=== PATIENT | female | born 1995 | race Caucasian/White ===

== ENCOUNTER 2017-07-25 19:07 | Emergency (ER) | payer SELFPAY ==
[2017-07-25] MEDS ORDERED: PANTOPRAZOLE SODIUM IV 40 MG VIAL IV ONE (19:45)
--- NOTE | 2017-07-25 19:47 | ED.PDOC ---
History of Present Illness - General Chief Complaint: Abdominal Pain Stated Complaint: mid epigastric pain after eating fries Time Seen by Provider: 07/25/17 19:14 Information Source: patient, RN notes reviewed, Vital Signs reviewed Exam Limitations: no limitations - History of Present Illness Initial Comments: Patient presents to ER with c/o upper abdominal pain that started @ 14:00 today after eating fries. The pain is sharp/stabbing and has spread up into her chest. No improvement with OTC Tylenol. No similar episodes in the past. + nausea but no vomiting or diarrhea. Abdominal Pain Onset Location: epigastric Pain Radiation: chest Quality: moderate, sharpness, stabbing Timing/Duration: 4-6 hours Improving Factors: nothing Worsening Factors: movement Associated Symptoms: chest pain, nausea/vomiting Review of Systems - Review of Systems Constitutional: States: no symptoms reported Respiratory: States: no symptoms reported Cardiology: States: see HPI, chest pain Gastrointestinal/Abdominal: States: see HPI, abdominal pain, nausea. Denies: diarrhea, vomiting Genitourinary: States: no symptoms reported Musculoskeletal: States: no symptoms reported Skin: States: no symptoms reported Neurological: States: no symptoms reported All other Systems: No Change from Baseline Past Medical History (General) - Patient Medical History Hx Asthma: No Hx Cardiac Disorders: No Hx Diabetes: No Hx Gastroesophageal Reflux: No Surgical History: other - Vaccination History Hx Tetanus, Diphtheria Vaccination: No Hx Influenza Vaccination: No - Social History Hx Tobacco Use: Yes Hx Alcohol Use: Yes - occ Family Medical History - Family History Father Hx Family Hypertension: Yes Hx Cardiac Disease: Yes Physical Exam - Physical Exam General Appearance: Alert, No apparent distress, Well Developed, Well Groomed, Well Hydrated, Well Nourished Neck: supple, normal inspection Respiratory: lungs clear, normal breath sounds, no respiratory distress, no accessory muscle use Cardiovascular/Chest: regular rate, rhythm, no gallop, no JVD, no murmur Gastrointestinal/Abdominal: normal bowel sounds, soft, no organomegaly, no pulsatile mass, tenderness - Epigastric, RUQ and LUQ w/o guarding or rebound Extremity: normal inspection Neurologic: alert, normal mood/affect, oriented x 3 Skin Exam: normal color Comments: Vital Signs 07/25/17 19:25 Temperature 97.5 F L Pulse Rate [ 77 left] Respiratory 18 Rate Blood Pressure 120/83 [left] O2 Sat by Pulse 95 Oximetry Progress - Progress Progress: 07/25/17 20:59 Pain is improving with Protonix 40mg IV Discussed that labs look good. Suspect her symptoms are from her gallbladder and that she will need to follow up with her PCP and get an outpatient sonogram. She is agreeable with plan. - Results/Orders Results/Orders: Laboratory Tests 07/25/17 07/25/17 20:14 20:14 WBC 7.9 RBC 4.42 Hgb 13.8 Hct 40.7 MCV 92.1 MCH 31.2 H MCHC 33.8 RDW 12.7 Plt Count 243 MPV 9.9 Absolute Neuts (auto) 3.80 Absolute Lymphs (auto) 3.00 Absolute Monos (auto) 0.70 Absolute Eos (auto) 0.20 Absolute Basos (auto) 0.10 Neutrophils % 48.5 Lymphocytes % 38.5 Monocytes % 8.5 Eosinophils % 3.1 Basophils % 1.4 Sodium 138 Potassium 3.6 Chloride 108 Carbon Dioxide 26 Anion Gap 7.6 L BUN 13 Creatinine 0.63 BUN/Creatinine Ratio 20.6 H Random Glucose 110 H Serum Osmolality 276.4 Calcium 9.2 Total Bilirubin 0.8 AST 23 ALT 25 Alkaline Phosphatase 38 L Serum Total Protein 7.1 Albumin 4.5 Globulin 2.6 Albumin/Globulin Ratio 1.7 Amylase 76 Lipase 39 Departure - Departure Clinical Impression: Gallbladder colic Time of Disposition: 21:02 Disposition: Discharge to Home or Self Care Condition: Good Departure Forms: ED Discharge - Pt. Copy, Patient Portal Self Enrollment Instructions: DI for General Gallbladder Conditions Diet: low fat, low cholesterol Activity: increase activity as tolerated Additional Instructions: Follow up with PCP for outpatient gallbladder sonogram.
[2017-07-25 22:35] VITALS: BP 100/70; TEMP 97.8; O2SAT 96
== END 2017-07-25 21:18 | disposition home or self-care (01) ==
LOC: ER 19:07
DX: K80.20 Calculus of gallbladder without cholecystitis without obstruction (principal); Z87.891 Personal history of nicotine dependence

== ENCOUNTER → 2017-07-27 | Emergency (ER) | payer SELFPAY ==
[~2017-07-27] MED LIST: PROMETHAZINE HCL INJ 12.5 MG in SODIUM CHLORIDE 0.9% 50ML 50 ML IVPB ONE; PROMETHAZINE HCL INJ 25 MG/ML VIAL ONE; SODIUM CHLORIDE 0.9% 50ML 50 ML ONE; fentaNYL CITRATE INJ 50 MCG/ML AMP IV ONE
[2017-07-27 13:46] VITALS: BP 119/67; TEMP 98.7; O2SAT 95
--- NOTE | 2017-07-27 22:21 | US ---
EXAM DESCRIPTION: Abdomen,Complete CLINICAL HISTORY: ABDOMINAL PAIN, R/O CHOLECYSTITIS COMPARISON: None. FINDINGS: Sonography was performed of the abdomen. Gallbladder wall thickness is 3 mm. The gallbladder is otherwise normal in appearance with no evidence of gallstones, sludge or pericholecystic fluid. No focal hepatic or pancreatic or splenic lesion is seen. The kidneys appear normal. No stones or hydronephrosis on either side. Common duct is normal in caliber. Right kidney measures 96 x 42 x 60 mm and left kidney 83 x 50 x 45 mm. No sonographic Lugo's sign. Common duct diameter is 2 mm. Liver span is 12.9 cm. Spleen span is 10.8 cm. Aorta measures 19 mm proximal, 17 mm mid and 14 mm distal. IMPRESSION: Mild gallbladder wall thickening. Otherwise normal. Electronically signed by: eD Yun 07/27/2017 10:20 PM [employer]
--- NOTE | 2017-07-27 22:53 | ED.PDOC ---
History of Present Illness - General Chief Complaint: GI Problem Stated Complaint: vomiting and diarrhea x 1 day Time Seen by Provider: 07/27/17 13:52 Source: patient Exam Limitations: no limitations Additional Information: C/O ABDOMINAL PAIN. FEELS LIKE ITS DUE TO GALLBLADDER. - History of Present Illness Timing/Duration: constant - NO RADIATION Severity: moderate Improving Factors: nothing Worsening Factors: other - PO INTAKE Associated Symptoms: nausea/vomiting Allergies/Adverse Reactions: Allergies NO KNOWN ALLERGY Allergy (Verified 07/25/17 19:47) Review of Systems - Review of Systems Constitutional: Denies: chills, fever EENTM: States: no symptoms reported Respiratory: Denies: cough, short of breath, wheezing Cardiology: Denies: chest pain, palpitations Gastrointestinal/Abdominal: States: abdominal pain, nausea. Denies: vomiting Genitourinary: States: no symptoms reported Musculoskeletal: States: no symptoms reported Skin: States: no symptoms reported Neurological: States: no symptoms reported Endocrine: States: no symptoms reported Past Medical History (General) - Patient Medical History Hx Seizures: No Hx Stroke: No Hx Dementia: No Hx Asthma: No Hx of COPD: No Hx Cardiac Disorders: No Hx Congestive Heart Failure: No Hx Pacemaker: No Hx Hypertension: No Hx Thyroid Disease: No Hx Diabetes: No Hx Gastroesophageal Reflux: No Hx Renal Disease: No Hx Cancer: No Hx of HIV: No Hx Hepatitis C: No Hx MRSA: No - Vaccination History Hx Tetanus, Diphtheria Vaccination: No Hx Influenza Vaccination: No Hx Pneumococcal Vaccination: No - Social History Hx Tobacco Use: Yes Hx Alcohol Use: Yes - occ - Triage Comment ED Triage Comment: Patient started having nausea, vomiting and diarrhea that started yesterday but having stomach pain since Thursday. Family Medical History - Family History Father Family History: Unknown Living Status: Unknown Hx Family Hypertension: Yes Hx Cardiac Disease: Yes Physical Exam - Physical Exam General Appearance: Alert, No apparent distress Eye Exam: bilateral normal Ears, Nose, Throat: hearing grossly normal, normal ENT inspection Neck: non-tender, full range of motion, supple Respiratory: lungs clear, normal breath sounds Cardiovascular/Chest: regular rate, rhythm, no murmur Gastrointestinal/Abdominal: soft, no organomegaly, other - EPIGASTRIC AND RUQ TTP, NO MURPHYS Back Exam: normal inspection, no CVA tenderness Extremity: normal range of motion, non-tender, normal inspection Neurologic: no motor/sensory deficits, alert Skin Exam: normal color, warm/dry Lymphatic: no adenopathy Progress - Progress Progress: 07/27/17 23:00 FEELS BETTER AFTER MEDS - EKG/XRAY/CT XRAY: SONO, NO STONES, NL CBD Departure - Departure Clinical Impression: Biliary colic Gastritis Qualifiers: Gastritis type: unspecified gastritis Chronicity: acute Gastritis bleeding: without bleeding Qualified Code(s): K29.00 - Acute gastritis without bleeding Disposition: Discharge to Home or Self Care Departure Forms: ED Discharge - Pt. Copy, Patient Portal Self Enrollment
== END | disposition home or self-care (01) ==
LOC: ER 13:17
DX: K29.00 Acute gastritis without bleeding (principal); Z87.891 Personal history of nicotine dependence
CPT/HCPCS: 76700; 80053; 82150; 83690; 84703; 85025; A4216; J2550; J3010

== ENCOUNTER 2017-09-11 20:56 | Emergency (ER) | payer SELFPAY ==
[2017-09-11 21:20] VITALS: TEMP 98.7
[2017-09-11] MEDS ORDERED: PHENOBARBITAL SODIUM 65 MG/ML IV ONE (21:30)
--- NOTE | 2017-09-11 21:31 | ED.PDOC ---
History of Present Illness - General Chief Complaint: Abdominal Pain Stated Complaint: ABDOMINAL PAIN Time Seen by Provider: 09/11/17 21:08 Information Source: patient Exam Limitations: no limitations - History of Present Illness Initial Comments: SHE HAS BEEN HERE SEVERAL TIMES FOR EPIGASTRIC AND RUQ PAIN. IN LATE JULY SHE HAD A GB SONOGRAM THAT REVEALED NO GALLSTONES AND NO DILATION OF THE CBD. SHE WAS RECOMMENDED A HIDA SCAN BUT HAS NO INSURANCE AND NO PCP. NO SHE PRESENTS WITH ANOTHER BILARY COLIC. Abdominal Pain Onset Location: RUQ, epigastric Pain Radiation: no radiation Quality: severe Timing/Duration: 1-3 hours Improving Factors: nothing Worsening Factors: nothing Associated Symptoms: nausea/vomiting Review of Systems - Review of Systems Constitutional: States: no symptoms reported EENTM: States: no symptoms reported Respiratory: States: no symptoms reported Cardiology: States: no symptoms reported Gastrointestinal/Abdominal: States: abdominal pain, nausea Genitourinary: States: no symptoms reported Musculoskeletal: States: no symptoms reported Skin: States: no symptoms reported Neurological: States: no symptoms reported Endocrine: States: no symptoms reported Hematologic/Lymphatic: States: no symptoms reported Past Medical History (General) - Patient Medical History Hx Seizures: No Hx Stroke: No Hx Dementia: No Hx Asthma: No Hx of COPD: No Hx Cardiac Disorders: No Hx Congestive Heart Failure: No Hx Pacemaker: No Hx Hypertension: No Hx Thyroid Disease: No Hx Diabetes: No Hx Gastroesophageal Reflux: No Hx Renal Disease: No Hx Cancer: No Hx of HIV: No Hx Hepatitis C: No Hx MRSA: No Surgical History: other - Vaccination History Hx Tetanus, Diphtheria Vaccination: Yes Hx Influenza Vaccination: No Hx Pneumococcal Vaccination: No - Social History Hx Tobacco Use: Yes Hx Alcohol Use: Yes - occ Feels Threatened In Home Enviroment: No Feels Threatened In a Relationship: No - Female History Patient is a Female of Child Bearing Age (10 -59 yrs old): Yes Family Medical History - Family History Father Family History: Unknown Living Status: Unknown Hx Family Hypertension: Yes Hx Cardiac Disease: Yes Physical Exam - Physical Exam General Appearance: Alert, Anxious, Ill Appearing, Restless, Well Hydrated, Well Nourished Eyes, Ears, Nose, Throat Exam: PERRL/EOMI, normal ENT inspection, TMs normal Neck: non-tender, full range of motion, supple, normal inspection Respiratory: chest non-tender, lungs clear, normal breath sounds, no respiratory distress, no accessory muscle use Cardiovascular/Chest: normal peripheral pulses, regular rate, rhythm, no edema, no gallop, no JVD, no murmur Gastrointestinal/Abdominal: normal bowel sounds, soft, no organomegaly, no pulsatile mass, tenderness - TO THE EPIGASTRIUM AND RUQ, NEG PEREZ SIGN Rectal Exam: deferred Back Exam: normal inspection Extremity: normal range of motion, non-tender, normal inspection Neurologic: no motor/sensory deficits, alert, normal mood/affect, oriented x 3 Progress - Results/Orders Results/Orders: THE LABORATORY IS REPORTED: WBC'S OF 7.9 WITH A NORMAL DIFFERENTIAL. THE LIVER FUNCTION TEST AND LIPASE ARE ALSO NORMAL. THE PATIENT MUCH IMPROVED AFTER MEDICATION FOR PAIN. Departure - Departure Clinical Impression: Biliary colic Abdominal pain Qualifiers: Abdominal location: right upper quadrant Qualified Code(s): R10.11 - Right upper quadrant pain Disposition: Discharge to Home or Self Care Condition: Good Departure Forms: ED Discharge - Pt. Copy, Patient Portal Self Enrollment Instructions: DI for Abdominal Pain-Adult Diet: other - NON GREASY DIET Activity: increase activity as tolerated Prescriptions: Tramadol HCl 50 mg PO Q4HR #20 tab Home Medications: Ambulatory Orders Tramadol HCl 50 mg PO Q4HR #20 tab 09/11/17
[2017-09-11] MEDS ORDERED: SODIUM CHLORIDE 0.9% 50ML 50 ML ONE (21:42)
[2017-09-11] MEDS ORDERED: PROMETHAZINE HCL INJ 25 MG/ML VIAL ONE (21:42)
[2017-09-11] MEDS: MORPHINE SULFATE INJ 10 MG/ML VIAL IV ONE (21:51)
[2017-09-11] MEDS: PROMETHAZINE HCL INJ 12.5 MG in SODIUM CHLORIDE 0.9% 50ML 50 ML IVPB ONE (21:52)
[2017-09-11 22:59] VITALS: BP 102/74; O2SAT 98
== END 2017-09-11 22:58 | disposition home or self-care (01) ==
LOC: ER 20:56
DX: K80.50 Calculus of bile duct without cholangitis or cholecystitis without obstruction (principal); Z87.891 Personal history of nicotine dependence
CPT/HCPCS: 36415; 80053; 83690; 85025; A4216; J2270; J2550

== ENCOUNTER 2017-09-21 07:58 | Emergency (ER) | payer SELFPAY ==
--- NOTE | 2017-09-21 08:05 | ED.PDOC ---
History of Present Illness - General Chief Complaint: General Stated Complaint: epigastric pain Time Seen by Provider: 09/21/17 08:04 Information Source: patient Exam Limitations: no limitations - History of Present Illness Initial Comments: Elizabeth Buckner 22 y/o female see in ER with sherp epigastric pain the last 2 days,felt nauseated but no actual vomiting .Denies dysuria,hematemesis,hematuria ,constipation. She had same symptoms in 07/22/2017 work up done gb-sono no gallstone.Advised to get Hida scan but stating no health insurance. Abdominal Pain Onset Location: epigastric Quality: intermittent, sharpness, waxing/waning Timing/Duration: 24 hours Improving Factors: nothing Worsening Factors: eating Associated Symptoms: nausea/vomiting Review of Systems - Review of Systems Constitutional: States: no symptoms reported EENTM: States: no symptoms reported Respiratory: States: no symptoms reported Cardiology: States: no symptoms reported Gastrointestinal/Abdominal: States: see HPI Genitourinary: States: no symptoms reported All other Systems: Reviewed and Negative, No Change from Baseline Past Medical History (General) - Patient Medical History Hx Seizures: No Hx Stroke: No Hx Dementia: No Hx Asthma: No Hx of COPD: No Hx Cardiac Disorders: No Hx Congestive Heart Failure: No Hx Pacemaker: No Hx Hypertension: No Hx Thyroid Disease: No Hx Diabetes: No Hx Gastroesophageal Reflux: No Hx Renal Disease: No Hx Cancer: No Hx of HIV: No Hx Hepatitis C: No Hx MRSA: No Surgical History: other - Vaccination History Hx Tetanus, Diphtheria Vaccination: Yes Hx Influenza Vaccination: No Hx Pneumococcal Vaccination: No - Social History Hx Tobacco Use: Yes Hx Alcohol Use: Yes - occ - Female History Patient is a Female of Child Bearing Age (10 -59 yrs old): Yes Hx Last Menstrual Period: 08/25/17 Patient : No Family Medical History - Family History Father Family History: Unknown Living Status: Unknown Hx Family Hypertension: Yes Hx Cardiac Disease: Yes Physical Exam - Physical Exam General Appearance: Alert, Comfortable, No apparent distress Eyes, Ears, Nose, Throat Exam: PERRL/EOMI, normal ENT inspection, pharynx normal Neck: non-tender, full range of motion, supple Respiratory: chest non-tender, lungs clear, normal breath sounds Cardiovascular/Chest: normal peripheral pulses, regular rate, rhythm, no murmur Peripheral Pulses: No deficit Gastrointestinal/Abdominal: normal bowel sounds, non tender, soft, no organomegaly Extremity: no calf tenderness Neurologic: alert, oriented x 3 Skin Exam: normal color, warm/dry Lymphatic: no adenopathy Progress - Progress Progress: 09/21/17 08:54 Last Vital Signs Temp 99.2 F 09/21/17 08:05 Pulse 76 09/21/17 08:05 Resp 20 09/21/17 08:05 BP 111/75 09/21/17 08:05 Pulse Ox 95 09/21/17 08:05 - Results/Orders Results/Orders: Laboratory Tests 09/21/17 09/21/17 09/21/17 08:26 08:28 08:32 WBC RBC Hgb Hct MCV MCH MCHC RDW Plt Count MPV Absolute Neuts (auto) Absolute Lymphs (auto) Absolute Monos (auto) Absolute Eos (auto) Absolute Basos (auto) Neutrophils % Lymphocytes % Monocytes % Eosinophils % Basophils % Sodium Potassium Chloride Carbon Dioxide Anion Gap BUN Creatinine BUN/Creatinine Ratio Random Glucose Serum Osmolality Calcium Total Bilirubin AST ALT Alkaline Phosphatase Serum Total Protein Albumin Globulin Albumin/Globulin Ratio Lipase Urine Color Yellow Urine Appearance Clear Urine pH 7.0 Ur Specific [place] 1.020 Urine Protein Negative Urine Glucose (UA) Negative Urine Ketones Negative Urine Blood Negative Urine Nitrite Negative Urine Bilirubin Negative Urine Urobilinogen 1.0 Ur Leukocyte Esterase Negative Urine RBC 0 Urine WBC 0 Ur Epithelial Cells 1-3 Urine Bacteria 0 Urine HCG, Qual Negative Urine Opiates Screen Negative Urine Barbiturates Negative Ur Phencyclidine Scrn Negative U Amphetamin/Meth Scrn Negative U Benzodiazepines Scrn Negative U Cocaine Metab Screen Negative U Cannabinoids Screen Positive H 09/21/17 09/21/17 09/21/17 08:43 08:43 08:43 WBC 9.7 RBC 4.46 Hgb 13.9 Hct 41.1 MCV 92.2 MCH 31.1 H MCHC 33.7 RDW 12.6 Plt Count 265 MPV 9.6 Absolute Neuts (auto) 5.00 Absolute Lymphs (auto) 3.50 H Absolute Monos (auto) 0.90 H Absolute Eos (auto) 0.20 Absolute Basos (auto) 0.10 Neutrophils % 51.3 Lymphocytes % 36.4 Monocytes % 9.4 H Eosinophils % 1.8 Basophils % 1.1 Sodium 139 Potassium 3.7 Chloride 107 Carbon Dioxide 24 Anion Gap 11.7 L BUN 11 Creatinine 0.67 BUN/Creatinine Ratio 16.4 Random Glucose 86 Serum Osmolality 276.2 Calcium 9.2 Total Bilirubin 0.8 AST 24 ALT 19 Alkaline Phosphatase 46 Serum Total Protein 7.5 Albumin 4.6 Globulin 2.9 Albumin/Globulin Ratio 1.6 Lipase 38 Urine Color Urine Appearance Urine pH Ur Specific [place] Urine Protein Urine Glucose (UA) Urine Ketones Urine Blood Urine Nitrite Urine Bilirubin Urine Urobilinogen Ur Leukocyte Esterase Urine RBC Urine WBC Ur Epithelial Cells Urine Bacteria Urine HCG, Qual Urine Opiates Screen Urine Barbiturates Ur Phencyclidine Scrn U Amphetamin/Meth Scrn U Benzodiazepines Scrn U Cocaine Metab Screen U Cannabinoids Screen - EKG/XRAY/CT XRAY: chest - no acute abnormalities Departure - Departure Clinical Impression: Abdominal pain Qualifiers: Abdominal location: epigastric Qualified Code(s): R10.13 - Epigastric pain Time of Disposition: 09:23 Disposition: Discharge to Home or Self Care Condition: Good Departure Forms: ED Discharge - Pt. Copy, Patient Portal Self Enrollment Diet: other - avoid greasy,spicy dairy foods until better Home Medications: Ambulatory Orders NK [NK] 09/21/17 Additional Instructions: NEED TO MAKE APPOINTMENT WITH -Surgeon for further evaluation call for your appointment
[2017-09-21] MEDS ORDERED: DICYCLOMINE HCL INJ 20 MG/2 ML AMP IM ONE (08:16)
[2017-09-21 08:21] VITALS: TEMP 99.2
--- NOTE | 2017-09-21 08:44 | RAD ---
EXAM DESCRIPTION: Chest,1 View CLINICAL HISTORY: cough FINDINGS/ IMPRESSION: Normal cardiomediastinal silhouette. No edema, infiltrates or effusions Electronically signed by: Roosevelt Ma MD 09/21/2017 8:[address] [facility]
--- NOTE | 2017-09-21 09:16 | US ---
EXAM DESCRIPTION: Gall Bladder: Ultrasound. CLINICAL HISTORY: 22 years Female, abdominal pain. Patient ate 3 hours before examination. COMPARISON: Ultrasound abdomen 07/27/2017. Chest x-ray on this visit. TECHNIQUE: Standard transabdominal scanning: Two-dimensional and Doppler modes. FINDINGS: The gallbladder appears contracted with wall thickness 3.2 mm. No intraluminal stones or sludge. No fluid. Nontender with transducer pressure. Common bile duct caliber 2.7 mm. Pancreas was visualized and unremarkable. Duct not well seen. Normal echogenicity of the liver. No intrahepatic biliary dilatation. Long axis of the right lobe is 13.1 cm. Capsule smooth where seen. Normal portal flow into the liver. No fluid in Morison's pouch. Long axis right kidney 9.7 cm. Normal cortical thickness. No hydronephrosis. IMPRESSION: Gallbladder contracted but not tender and no stones or sludge. Wall thickness secondary to contraction. Normal ultrasound of the liver pancreas and right kidney. No ascites. Electronically signed by: De Ryder MD 09/21/2017 9:15 AM [employer]
[2017-09-21 09:51] VITALS: BP 121/73; O2SAT 96
== END 2017-09-21 09:47 | disposition home or self-care (01) ==
LOC: ER 07:58
DX: R10.13 Epigastric pain (principal); Z87.891 Personal history of nicotine dependence
CPT/HCPCS: 36415; 71045; 76705; 80053; 80307; 81001; 81025; 83690; 85025; J0500

== ENCOUNTER 2017-11-17 15:32 | Emergency (ER) | payer SELFPAY ==
[2017-11-17 15:53] VITALS: TEMP 98.2
[2017-11-17 17:27] VITALS: BP 109/76; O2SAT 97
--- NOTE | 2017-11-17 17:43 | ED.PDOC ---
History of Present Illness - General Chief Complaint: Abdominal Pain Stated Complaint: abd pain Time Seen by Provider: 11/17/17 15:46 Source: patient Exam Limitations: no limitations - History of Present Illness Initial Comments: The patient is a 22-year-old female presenting to emergency room secondary to pelvic and left low back discomfort for the last 3-4 days. She had a miscarriage approximately 3 weeks ago and just all bleeding one week ago. She is only been with one sexual partner for the last year. She is reporting minimal significant vaginal discharge. no fevers. She has a 5-year-old daughter. No history of pelvic inflammatory disease or ovarian pathology in the past. She miscarried approximately 4 weeks along according to her. Timing/Duration: unsure Severity: moderate Improving Factors: nothing Worsening Factors: nothing Associated Symptoms: denies symptoms Allergies/Adverse Reactions: Allergies NO KNOWN ALLERGY Allergy (Verified 09/21/17 08:21) Home Medications: Ambulatory Orders levoFLOXacin [Levaquin] 500 mg PO DAILY #7 tab 11/17/17 Review of Systems - Review of Systems Constitutional: States: no symptoms reported EENTM: States: no symptoms reported Respiratory: States: no symptoms reported Cardiology: States: no symptoms reported Gastrointestinal/Abdominal: States: abdominal pain Genitourinary: States: pain Musculoskeletal: States: back pain Skin: States: no symptoms reported Neurological: States: no symptoms reported Endocrine: States: no symptoms reported All other Systems: No Change from Baseline Past Medical History (General) - Patient Medical History Hx Seizures: No Hx Stroke: No Hx Dementia: No Hx Asthma: No Hx of COPD: No Hx Cardiac Disorders: No Hx Congestive Heart Failure: No Hx Pacemaker: No Hx Hypertension: No Hx Thyroid Disease: No Hx Diabetes: No Hx Gastroesophageal Reflux: No Hx Renal Disease: No Hx Cancer: No Hx of HIV: No Hx Hepatitis C: No Hx MRSA: No - Vaccination History Hx Tetanus, Diphtheria Vaccination: Yes Hx Influenza Vaccination: No Hx Pneumococcal Vaccination: No - Social History Hx Tobacco Use: Yes Hx Alcohol Use: Yes - occ - Female History Patient is a Female of Child Bearing Age (10 -59 yrs old): Yes Hx Last Menstrual Period: 08/25/17 Patient : No - Triage Comment ED Triage Comment: Patient states she had a miscarriage 4 weeks ago. Started having lower abdominal pain and lower back pain yesterday. Also had some vaginal bleeding on Thursday for the day. Family Medical History - Family History Father Family History: Unknown Living Status: Unknown Hx Family Hypertension: Yes Hx Cardiac Disease: Yes Physical Exam - Physical Exam General Appearance: Alert, Comfortable, No apparent distress Eye Exam: bilateral normal Ears, Nose, Throat: hearing grossly normal, normal ENT inspection, normal pharynx Neck: full range of motion, supple Respiratory: lungs clear, normal breath sounds, no respiratory distress, no accessory muscle use Cardiovascular/Chest: normal peripheral pulses, regular rate, rhythm, no edema Peripheral Pulses: radial,right: 2+, radial,left: 2+, dorsalis pedis,right: 2+, dorsalis pedis,left: 2+ Gastrointestinal/Abdominal: soft, other - ild to moderate left lower quadrant discomfort palpation Rectal Exam: deferred, other - pelvic exam shows moderate thin white vaginal discharge. She does have some cervical motion tenderness. No obvious vaginal or cervical lesions noted. No definite masses palpable on bimanual exam. Pain does localize to the left lower quadrant. Back Exam: normal inspection, no CVA tenderness, no vertebral tenderness Extremity: normal range of motion, non-tender, normal inspection, no pedal edema , no calf tenderness, normal capillary refill Neurologic: flash designer II-XII nml as tested, alert, normal mood/affect, oriented x 3 Skin Exam: normal color Comments: Vital Signs - 24 hr 11/17/17 11/17/17 15:35 17:26 Temperature 98.2 F Pulse Rate [ 85 73 Right] Respiratory 18 16 Rate Blood Pressure 107/82 109/76 [Left Arm] O2 Sat by Pulse 96 97 Oximetry Progress - Progress Progress: 11/17/17 17:45 the patient is a 22-year-old female presenting to the emergency room with a syndrome that is consistent with pelvic inflammatory disease that is likely not due to a sexually transmitted disease. wet prep failed to show any definitive source. gC and chlamydia tests are pending. The patient is going to receive a dose of Rocephin and Levaquin here today. She'll be placed on 7 days of oral Levaquin. She does need to follow up with a primary care doctor of her choice in a couple of weeks for reevaluation. ER warnings were given for any worsening. - Results/Orders Results/Orders: 11/17/17 17:17 GC CHLAMYDIA RNA,TMA Stat this is a send out Laboratory Results - last 24 hr 11/17/17 11/17/17 11/17/17 16:05 16:14 16:14 WBC 8.8 RBC 4.72 Hgb 15.0 Hct 43.9 MCV 93.0 MCH 31.8 H MCHC 34.2 RDW 12.6 Plt Count 257 MPV 9.4 Absolute Neuts (auto) 5.00 Absolute Lymphs (auto) 2.80 Absolute Monos (auto) 0.80 Absolute Eos (auto) 0.20 Absolute Basos (auto) 0.10 Neutrophils % 56.3 Lymphocytes % 31.6 Monocytes % 9.3 H Eosinophils % 2.1 Basophils % 0.7 Sodium 137 Potassium 3.6 Chloride 103 Carbon Dioxide 28 Anion Gap 9.6 L BUN 15 Creatinine 0.77 BUN/Creatinine Ratio 19.5 Random Glucose 61 L Serum Osmolality 272.6 L Calcium 9.8 Total Bilirubin 0.8 AST 24 ALT 26 Alkaline Phosphatase 50 Serum Total Protein 8.0 Albumin 4.6 Globulin 3.4 Albumin/Globulin Ratio 1.4 Amylase 74 Lipase 33 Beta HCG, Quant Urine Color Yellow Urine Appearance Cloudy Urine pH 5.5 Ur Specific [place] 1.025 Urine Protein Negative Urine Glucose (UA) Negative Urine Ketones Negative Urine Blood Negative Urine Nitrite Negative Urine Bilirubin Negative Urine Urobilinogen 0.2 Ur Leukocyte Esterase Trace H Urine RBC 0-1 Urine WBC 1-3 Ur Epithelial Cells 5-10 Amorphous Sediment 1+ Urine Bacteria 1+ Patient ABO/Rh 11/17/17 11/17/17 16:14 16:14 WBC RBC Hgb Hct MCV MCH MCHC RDW Plt Count MPV Absolute Neuts (auto) Absolute Lymphs (auto) Absolute Monos (auto) Absolute Eos (auto) Absolute Basos (auto) Neutrophils % Lymphocytes % Monocytes % Eosinophils % Basophils % Sodium Potassium Chloride Carbon Dioxide Anion Gap BUN Creatinine BUN/Creatinine Ratio Random Glucose Serum Osmolality Calcium Total Bilirubin AST ALT Alkaline Phosphatase Serum Total Protein Albumin Globulin Albumin/Globulin Ratio Amylase Lipase Beta HCG, Quant < 0.6 Urine Color Urine Appearance Urine pH Ur Specific [place] Urine Protein Urine Glucose (UA) Urine Ketones Urine Blood Urine Nitrite Urine Bilirubin Urine Urobilinogen Ur Leukocyte Esterase Urine RBC Urine WBC Ur Epithelial Cells Amorphous Sediment Urine Bacteria Patient ABO/Rh O POSITIVE Departure - Departure Clinical Impression: Pelvic inflammatory disease Disposition: Discharge to Home or Self Care Condition: Fair Departure Forms: ED Discharge - Pt. Copy, Patient Portal Self Enrollment Instructions: DI for Pelvic Inflammatory Disease Diet: regular diet Activity: increase activity as tolerated Prescriptions: levoFLOXacin [Levaquin] 500 mg PO DAILY #7 tab Home Medications: Ambulatory Orders levoFLOXacin [Levaquin] 500 mg PO DAILY #7 tab 11/17/17 Additional Instructions: the patient is a 22-year-old female presenting to the emergency room with a syndrome that is consistent with pelvic inflammatory disease that is likely not due to a sexually transmitted disease. wet prep failed to show any definitive source. gC and chlamydia tests are pending. The patient is going to receive a dose of Rocephin and Levaquin here today. She'll be placed on 7 days of oral Levaquin. She does need to follow up with a primary care doctor of her choice in a couple of weeks for reevaluation. ER warnings were given for any worsening.
[2017-11-17] MEDS ORDERED: levoFLOXacin 500 MG TAB PO ONE (17:50)
[2017-11-17] MEDS ORDERED: cefTRIAXone SODIUM 1 GM VIAL IM ONE (17:50)
== END 2017-11-17 18:30 | disposition home or self-care (01) ==
LOC: ER 15:32
DX: N73.9 Female pelvic inflammatory disease, unspecified (principal); Z87.891 Personal history of nicotine dependence

== ENCOUNTER 2017-12-01 00:31 | Emergency (ER) | payer SELFPAY ==
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
--- NOTE | 2017-12-01 01:43 | RAD ---
EXAM DESCRIPTION: Chest,1 View CLINICAL HISTORY: panic attack, chest pain, cough COMPARISON: September 21, 2017 FINDINGS: Cardiac silhouette is within normal limits. There is no focal parenchymal or pleural disease. There is no acute osseous process visualized. IMPRESSION: No evidence of acute cardiopulmonary disease. Electronically signed by: Damien Mar MD 12/01/2017 1:42 AM CDT
[2017-12-01 02:04] VITALS: BP 100/58; TEMP 97.2; O2SAT 95
== END 2017-12-01 02:03 | disposition home or self-care (01) ==
LOC: ER 00:31
DX: F41.0 Panic disorder [episodic paroxysmal anxiety] (principal); R07.9 Chest pain, unspecified; Z87.891 Personal history of nicotine dependence
CPT/HCPCS: 71045; 93005; J2060

== ENCOUNTER 2018-02-22 12:39 | Emergency (ER) | payer SELFPAY ==
[2018-02-22 14:07] VITALS: BP 113/71; TEMP 98.3; O2SAT 97
--- NOTE | 2018-02-22 15:47 | ED.PDOC ---
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 PT REPORTS SHE IS 5 DAYS LATE ON HER PERIOD BUT HAS NOT TAKEN A TEST BECAUSE SHE HAS BEEN BUSY MOVING. Quality: moderate, cramping Radiation: suprapubic Activites at Onset: none Prior abdominal problems: none Improving Factors: nothing Worsening Factors: nothing Associated Symptoms: abdominal pain, nausea/vomiting Allergies/Adverse Reactions: Allergies NO KNOWN ALLERGY Allergy (Verified 09/21/17 08:21) Home Medications: Ambulatory Orders levoFLOXacin [Levaquin] 500 mg PO DAILY #7 tab 11/17/17 Phenazopyridine HCl [Pyridium] 200 mg PO BID 3 Days #6 tab 02/22/18 Sulfamethoxazole-Trimethoprim [Bactrim Ds 800-160 mg] 1 tab PO BID 3 Days #6 tab 02/22/18 Review of Systems - Review of Systems Constitutional: Denies: chills, fever EENTM: Denies: nose congestion, throat pain Respiratory: Denies: cough, short of breath Cardiology: Denies: chest pain, palpitations Gastrointestinal/Abdominal: States: nausea, vomiting. Denies: constipation, diarrhea Genitourinary: States: discharge. Denies: dysuria, frequency Musculoskeletal: Denies: joint pain, joint swelling Skin: Denies: dryness, lesions Neurological: Denies: headache, numbness Past Medical History (General) - Patient Medical History Hx Seizures: No Hx Stroke: No Hx Dementia: No Hx Asthma: No Hx of COPD: No Hx Cardiac Disorders: No Hx Congestive Heart Failure: No Hx Pacemaker: No Hx Hypertension: No Hx Thyroid Disease: No Hx Diabetes: No Hx Gastroesophageal Reflux: No Hx Renal Disease: No Hx Cancer: No Hx of HIV: No Hx Hepatitis C: No Hx MRSA: No - Vaccination History Hx Tetanus, Diphtheria Vaccination: Yes Hx Influenza Vaccination: No Hx Pneumococcal Vaccination: No - Social History Hx Tobacco Use: Yes Hx Alcohol Use: Yes - occ - Female History Patient is a Female of Child Bearing Age (10 -59 yrs old): Yes Hx Last Menstrual Period: 08/25/17 Patient : - unknown - Triage Comment ED Triage Comment: Patient states she has been having vaginal bleeding and pain for a week. States she has had a miscarriage back in November 15 and states the symptoms are the same as before however, she has not had a test or seen a assisted living associate Family Medical History - Family History Father Family History: Unknown Living Status: Unknown Hx Family Hypertension: Yes Hx Cardiac Disease: Yes Physical Exam - Physical Exam General Appearance: Alert, No apparent distress, Well Groomed, Well Hydrated, Well Nourished Eyes, Ears, Nose, Throat Exam: normal ENT inspection Neck: non-tender, full range of motion, supple Cardiovascular/Respiratory: no M/R/G, normal breath sounds, no respiratory distress Gastrointestinal/Abdominal: soft, tenderness - SUPRAPUBIC REGION Extremity: non-tender, normal inspection Neurologic: alert, normal mood/affect, oriented x 3 Skin Exam: normal color, warm/dry Progress - Progress Progress: 02/22/18 16:06 PT RESTING COMFORTABLY, LABS DISCUSSED. RECOMMEND REPEATING HOME TEST IN 5 DAYS IF THERE IS STILL A CONCERN. - Results/Orders Results/Orders: Laboratory Tests 02/22/18 02/22/18 14:25 15:25 Urine Color Yellow Urine Appearance Sl cloudy Urine pH 6.0 Ur Specific [place] >= 1.030 Urine Protein Negative Urine Glucose (UA) Negative Urine Ketones Negative Urine Blood Negative Urine Nitrite Negative Urine Bilirubin Negative Urine Urobilinogen 0.2 Ur Leukocyte Esterase Small H Urine RBC 0-1 Urine WBC 3-5 H Ur Epithelial Cells 3-5 Amorphous Sediment 1+ Urine Bacteria 0 Urine HCG, Qual Negative Departure - Departure Clinical Impression: UTI (urinary tract infection), Negative test, Abdominal cramping Time of Disposition: 16:08 Disposition: Discharge to Home or Self Care Condition: Good Departure Forms: ED Discharge - Pt. Copy, Patient Portal Self Enrollment Instructions: Urinary Tract Infections in Adults, Acute Pelvic Pain (DC) Diet: resume usual diet Referrals: [facility] [Provider Group] - 1-2 Weeks Prescriptions: Phenazopyridine HCl [Pyridium] 200 mg PO BID 3 Days #6 tab Sulfamethoxazole-Trimethoprim [Bactrim Ds 800-160 mg] 1 tab PO BID 3 Days #6 tab Home Medications: Ambulatory Orders levoFLOXacin [Levaquin] 500 mg PO DAILY #7 tab 11/17/17 Phenazopyridine HCl [Pyridium] 200 mg PO BID 3 Days #6 tab 02/22/18 Sulfamethoxazole-Trimethoprim [Bactrim Ds 800-160 mg] 1 tab PO BID 3 Days #6 tab 02/22/18
[2018-02-22] MEDS ORDERED: SULFA/TRIMETH 800/160 (DS) TAB 1 EA TAB PO ONE (16:06)
[2018-02-22] MEDS ORDERED: PHENAZOPYRIDINE HCL 200 MG TAB PO ONE (16:06)
== END 2018-02-22 16:27 | disposition home or self-care (01) ==
LOC: ER 12:39
DX: N39.0 Urinary tract infection, site not specified (principal); R10.2 Pelvic and perineal pain; N89.8 Other specified noninflammatory disorders of vagina; Z32.02 Encounter for pregnancy test, result negative; Z87.891 Personal history of nicotine dependence

== ENCOUNTER 2018-03-15 10:27 | Emergency (ER) | payer SELFPAY ==
[2018-03-15] MEDS ORDERED: SODIUM CHLORIDE 0.9% (FLUSH) 10 ML SYG IV PRN (10:47)
[2018-03-15] MEDS ORDERED: cefTRIAXone SODIUM 1 GM in SODIUM CHL 0.9% 50ML MIN-BAG+ 50 ML IVPB ONE (10:56)
[2018-03-15] MEDS ORDERED: SODIUM CHLORIDE 0.9% 1000ML 1,000 ML IVS ONE (10:56)
[2018-03-15] MEDS ORDERED: KETOROLAC TROMETHAMINE INJ 30 MG/ML VIAL IV ONE (10:57)
[2018-03-15] MEDS ORDERED: ONDANSETRON INJ 4 MG/2 ML VIAL IV ONE (10:57)
--- NOTE | 2018-03-15 11:00 | ED.PDOC ---
History of Present Illness - General Chief Complaint: Problem Stated Complaint: flank pain Time Seen by Provider: 03/15/18 10:43 Source: patient Exam Limitations: no limitations - History of Present Illness Initial Comments: PT REPORTS 3 DAY HISTORY OF RIGHT FLANK PAIN, NAUSEA, AND SUBJECTIVE FEVER. PT STATES SHE WAS DIAGNOSED WITH A UTI 3 WKS AGO BUT DID NOT FILL HER RX. PT DENIES VOMITING OR ABD PAIN. Severity: moderate Associated Symptoms: fever/chills, loss of appetite, nausea/vomiting Allergies/Adverse Reactions: Allergies NO KNOWN ALLERGY Allergy (Verified 09/21/17 08:21) Home Medications: Ambulatory Orders levoFLOXacin [Levaquin] 500 mg PO DAILY #7 tab 11/17/17 Phenazopyridine HCl [Pyridium] 200 mg PO BID 3 Days #6 tab 02/22/18 Sulfamethoxazole-Trimethoprim [Bactrim Ds 800-160 mg] 1 tab PO BID 3 Days #6 tab 02/22/18 Ibuprofen 800 mg PO Q8HR PRN #30 tab 03/15/18 Promethazine Tab [Phenergan Tablet] 25 mg PO Q6H PRN #15 tab 03/15/18 Sulfamethoxazole-Trimethoprim [Bactrim Ds 800-160 mg] 2 tab PO BID #14 tab 03/15 Review of Systems - Review of Systems Constitutional: States: chills, fever EENTM: Denies: nose congestion, throat pain Respiratory: Denies: cough, short of breath Cardiology: Denies: chest pain, palpitations Gastrointestinal/Abdominal: States: nausea. Denies: abdominal pain, vomiting Genitourinary: States: see HPI, dysuria, frequency Musculoskeletal: States: see HPI, back pain. Denies: joint pain Skin: Denies: dryness, lesions Neurological: Denies: headache, numbness Past Medical History (General) - Patient Medical History Hx Seizures: No Hx Stroke: No Hx Dementia: No Hx Asthma: No Hx of COPD: No Hx Cardiac Disorders: No Hx Congestive Heart Failure: No Hx Pacemaker: No Hx Hypertension: No Hx Thyroid Disease: No Hx Diabetes: No Hx Gastroesophageal Reflux: No Hx Renal Disease: No Hx Cancer: No Hx of HIV: No Hx Hepatitis C: No Hx MRSA: No Surgical History: other - Vaccination History Hx Tetanus, Diphtheria Vaccination: Yes Hx Influenza Vaccination: No Hx Pneumococcal Vaccination: No - Social History Hx Tobacco Use: Yes Hx Alcohol Use: Yes - occ - Female History Patient is a Female of Child Bearing Age (10 -59 yrs old): Yes Hx Last Menstrual Period: 08/25/17 Patient : - unknown Family Medical History - Family History Father Family History: Unknown Living Status: Unknown Hx Family Hypertension: Yes Hx Cardiac Disease: Yes Physical Exam - Physical Exam General Appearance: Alert, Well Groomed, Well Hydrated, Well Nourished Eye Exam: bilateral normal Ears, Nose, Throat: hearing grossly normal Neck: full range of motion, normal inspection Respiratory: lungs clear, normal breath sounds, no respiratory distress Cardiovascular/Chest: regular rate, rhythm, no edema, no murmur Gastrointestinal/Abdominal: non tender, soft Back Exam: CVA tenderness (R) Extremity: normal inspection, no pedal edema Neurologic: alert, normal mood/affect, oriented x 3 Skin Exam: normal color, warm/dry Progress - Progress Progress: 03/15/18 11:46 PT REPORTS IMPROVEMENT IN SYMPTOMS AFTER TORADOL AND ZOFRAN. LABS DISCUSSED. - Results/Orders Results/Orders: Laboratory Tests 03/15/18 03/15/18 03/15/18 10:35 10:35 10:35 WBC 8.8 RBC 4.60 Hgb 14.9 Hct 43.1 MCV 93.7 MCH 32.3 H MCHC 34.4 RDW 13.1 Plt Count 226 MPV 10.0 Absolute Neuts (auto) 4.30 Absolute Lymphs (auto) 3.20 Absolute Monos (auto) 0.90 H Absolute Eos (auto) 0.30 Absolute Basos (auto) 0.00 Neutrophils % 49.3 Lymphocytes % 36.1 Monocytes % 10.4 H Eosinophils % 3.6 Basophils % 0.6 Sodium 138 Potassium 3.7 Chloride 105 Carbon Dioxide 25 Anion Gap 11.7 L BUN 11 Creatinine 0.71 BUN/Creatinine Ratio 15.5 Random Glucose 98 Serum Osmolality 275.1 Calcium 9.5 Serum HCG, Qual Negative Urine Color Urine Appearance Urine pH Ur Specific [place] Urine Protein Urine Glucose (UA) Urine Ketones Urine Blood Urine Nitrite Urine Bilirubin Urine Urobilinogen Ur Leukocyte Esterase Urine RBC Urine WBC Ur Epithelial Cells Urine Bacteria 03/15/18 10:35 WBC RBC Hgb Hct MCV MCH MCHC RDW Plt Count MPV Absolute Neuts (auto) Absolute Lymphs (auto) Absolute Monos (auto) Absolute Eos (auto) Absolute Basos (auto) Neutrophils % Lymphocytes % Monocytes % Eosinophils % Basophils % Sodium Potassium Chloride Carbon Dioxide Anion Gap BUN Creatinine BUN/Creatinine Ratio Random Glucose Serum Osmolality Calcium Serum HCG, Qual Urine Color Yellow Urine Appearance Sl cloudy Urine pH 5.5 Ur Specific [place] >= 1.030 Urine Protein Negative Urine Glucose (UA) Negative Urine Ketones Negative Urine Blood Negative Urine Nitrite Negative Urine Bilirubin Negative Urine Urobilinogen 0.2 Ur Leukocyte Esterase Negative Urine RBC 0 Urine WBC 20-30 H Ur Epithelial Cells 5-10 Urine Bacteria 3+ H Departure - Departure Clinical Impression: Pyelonephritis Time of Disposition: 11:46 Disposition: Discharge to Home or Self Care Condition: Good Departure Forms: ED Discharge - Pt. Copy, Patient Portal Self Enrollment Instructions: DI for Kidney Infection Diet: bland diet Activity: increase activity as tolerated Referrals: [facility] [Provider Group] - 1-5 Days Prescriptions: Ibuprofen 800 mg PO Q8HR PRN #30 tab PRN Reason: Pain Promethazine Tab [Phenergan Tablet] 25 mg PO Q6H PRN #15 tab PRN Reason: Nausea/Vomiting Sulfamethoxazole-Trimethoprim [Bactrim Ds 800-160 mg] 2 tab PO BID #14 tab Home Medications: Ambulatory Orders levoFLOXacin [Levaquin] 500 mg PO DAILY #7 tab 11/17/17 Phenazopyridine HCl [Pyridium] 200 mg PO BID 3 Days #6 tab 02/22/18 Sulfamethoxazole-Trimethoprim [Bactrim Ds 800-160 mg] 1 tab PO BID 3 Days #6 tab 02/22/18 Ibuprofen 800 mg PO Q8HR PRN #30 tab 03/15/18 Promethazine Tab [Phenergan Tablet] 25 mg PO Q6H PRN #15 tab 03/15/18 Sulfamethoxazole-Trimethoprim [Bactrim Ds 800-160 mg] 2 tab PO BID #14 tab 03/15
[2018-03-15] MEDS ORDERED: cefTRIAXone SODIUM 1 GM VIAL ONE (11:10)
[2018-03-15] MEDS ORDERED: SODIUM CHL 0.9% 50ML MIN-BAG+ 50 ML IVPB ONE (11:10)
[2018-03-15 13:06] VITALS: BP 115/77; TEMP 97.1; O2SAT 100
== END 2018-03-15 13:05 | disposition home or self-care (01) ==
LOC: ER 10:27
DX: N12 Tubulo-interstitial nephritis, not specified as acute or chronic (principal); R11.2 Nausea with vomiting, unspecified; Z87.891 Personal history of nicotine dependence
CPT/HCPCS: 36415; 36416; 80048; 81001; 84703; 85025; 87086; J0696; J1885; J2405; J7030; J7050

== ENCOUNTER 2018-05-27 09:52 | Emergency (ER) | payer SELFPAY ==
[2018-05-27 10:20] VITALS: TEMP 97.4
--- NOTE | 2018-05-27 10:32 | ED.PDOC ---
History of Present Illness - General Chief Complaint: Problem Stated Complaint: right flank pain,burning with urination Time Seen by Provider: 05/27/18 10:08 Source: patient Exam Limitations: no limitations - History of Present Illness Initial Comments: Elizabeth Santoro 23 y/o female stated that had dysuria and fraquency for the last one week and yesterday stating to have flank pains and N/V x 1 this am.Denies fever/chills Timing/Duration: 1 week Severity: moderate Improving Factors: nothing Worsening Factors: nothing Allergies/Adverse Reactions: Allergies NO KNOWN ALLERGY Allergy (Verified 09/21/17 08:21) Home Medications: Ambulatory Orders levoFLOXacin [Levaquin] 500 mg PO DAILY #7 tab 11/17/17 Phenazopyridine HCl [Pyridium] 200 mg PO BID 3 Days #6 tab 02/22/18 Sulfamethoxazole-Trimethoprim [Bactrim Ds 800-160 mg] 1 tab PO BID 3 Days #6 tab 02/22/18 Ibuprofen 800 mg PO Q8HR PRN #30 tab 03/15/18 Promethazine Tab [Phenergan Tablet] 25 mg PO Q6H PRN #15 tab 03/15/18 Sulfamethoxazole-Trimethoprim [Bactrim Ds 800-160 mg] 2 tab PO BID #14 tab 03/15 Baclofen 20 mg PO BID #14 tab 05/27/18 Review of Systems - Review of Systems Constitutional: States: no symptoms reported EENTM: States: no symptoms reported Respiratory: States: no symptoms reported Cardiology: States: no symptoms reported Genitourinary: States: see HPI Musculoskeletal: States: back pain Neurological: States: no symptoms reported Past Medical History (General) - Patient Medical History Hx Seizures: No Hx Stroke: No Hx Dementia: No Hx Asthma: No Hx of COPD: No Hx Cardiac Disorders: No Hx Congestive Heart Failure: No Hx Pacemaker: No Hx Hypertension: No Hx Thyroid Disease: No Hx Diabetes: No Hx Gastroesophageal Reflux: No Hx Renal Disease: No Hx Cancer: No Hx of HIV: No Hx Hepatitis C: No Hx MRSA: No Surgical History: other - benign breast biopsy - Vaccination History Hx Tetanus, Diphtheria Vaccination: Yes Hx Influenza Vaccination: No Hx Pneumococcal Vaccination: No - Social History Hx Tobacco Use: Yes Hx Alcohol Use: Yes - occ - Female History Patient is a Female of Child Bearing Age (10 -59 yrs old): Yes Hx Last Menstrual Period: 05/10/18 Patient : No - unknown Family Medical History - Family History Father Family History: Unknown Living Status: Unknown Hx Family Hypertension: Yes Hx Cardiac Disease: Yes Physical Exam - Physical Exam General Appearance: Alert, Comfortable, No apparent distress Eye Exam: bilateral normal Ears, Nose, Throat: hearing grossly normal, normal ENT inspection, normal pharynx Neck: non-tender, full range of motion, supple, normal inspection Respiratory: chest non-tender, lungs clear, normal breath sounds, no respiratory distress Cardiovascular/Chest: normal peripheral pulses, regular rate, rhythm, no murmur Peripheral Pulses: radial,right: 2+, radial,left: 2+ Gastrointestinal/Abdominal: normal bowel sounds, non tender, soft, no organomegaly Back Exam: no CVA tenderness, no vertebral tenderness Extremity: normal range of motion, non-tender, no pedal edema, no calf tenderness Neurologic: no motor/sensory deficits, alert, oriented x 3 Skin Exam: normal color, warm/dry Lymphatic: no adenopathy Progress - Progress Progress: 05/27/18 10:34 Vital Signs - 8 hr 05/27/18 10:16 Temperature 97.4 F L Pulse Rate [ 83 Right Brachial] Respiratory 20 Rate Blood Pressure 100/62 [Right Arm] O2 Sat by Pulse 98 Oximetry - Results/Orders Results/Orders: Laboratory Results - last 24 hr 05/27/18 05/27/18 05/27/18 10:20 10:38 10:38 WBC 8.6 RBC 4.73 Hgb 15.0 Hct 45.4 MCV 96.1 MCH 31.7 H MCHC 33.0 RDW 12.6 Plt Count 215 MPV 9.6 Absolute Neuts (auto) 5.20 Absolute Lymphs (auto) 2.40 Absolute Monos (auto) 0.80 Absolute Eos (auto) 0.20 Absolute Basos (auto) 0.00 Neutrophils % 60.4 Lymphocytes % 27.7 Monocytes % 9.2 H Eosinophils % 2.2 Basophils % 0.5 Sodium 140 Potassium 4.0 Chloride 106 Carbon Dioxide 26 Anion Gap 12.0 BUN 17 Creatinine 0.70 BUN/Creatinine Ratio 24.3 H Random Glucose 111 H Serum Osmolality 281.6 Calcium 9.5 Total Bilirubin 0.7 AST 40 ALT 40 Alkaline Phosphatase 44 Serum Total Protein 7.6 Albumin 4.7 Globulin 2.9 Albumin/Globulin Ratio 1.6 Lipase 34 Urine Color Yellow Urine Appearance Clear Urine pH 6.0 Ur Specific [place] 1.025 Urine Protein Negative Urine Glucose (UA) Negative Urine Ketones Negative Urine Blood Negative Urine Nitrite Negative Urine Bilirubin Negative Urine Urobilinogen 0.2 Ur Leukocyte Esterase Negative Urine RBC 0 Urine WBC 1-3 Ur Epithelial Cells 3-5 Urine Bacteria 0 Urine HCG, Qual 05/27/18 10:38 WBC RBC Hgb Hct MCV MCH MCHC RDW Plt Count MPV Absolute Neuts (auto) Absolute Lymphs (auto) Absolute Monos (auto) Absolute Eos (auto) Absolute Basos (auto) Neutrophils % Lymphocytes % Monocytes % Eosinophils % Basophils % Sodium Potassium Chloride Carbon Dioxide Anion Gap BUN Creatinine BUN/Creatinine Ratio Random Glucose Serum Osmolality Calcium Total Bilirubin AST ALT Alkaline Phosphatase Serum Total Protein Albumin Globulin Albumin/Globulin Ratio Lipase Urine Color Urine Appearance Urine pH Ur Specific [place] Urine Protein Urine Glucose (UA) Urine Ketones Urine Blood Urine Nitrite Urine Bilirubin Urine Urobilinogen Ur Leukocyte Esterase Urine RBC Urine WBC Ur Epithelial Cells Urine Bacteria Urine HCG, Qual Negative Discuss result of lab test to patient explained all her test came back WNL no UTI as she mentioned most likely muscle spasms. Departure - Departure Clinical Impression: Frequency of urination Back pain Qualifiers: Back pain location: low back pain Chronicity: unspecified Back pain laterality : bilateral Sciatica presence: without sciatica Qualified Code(s): M54.5 - Low back pain Time of Disposition: 11:49 Disposition: Discharge to Home or Self Care Condition: Fair Departure Forms: ED Discharge - Pt. Copy, Patient Portal Self Enrollment Instructions: Muscle Spasms (DC) Referrals: Kandy Healy NP [Primary Care Provider] - 1-2 Weeks Prescriptions: Baclofen 20 mg PO BID #14 tab Home Medications: Ambulatory Orders levoFLOXacin [Levaquin] 500 mg PO DAILY #7 tab 11/17/17 Phenazopyridine HCl [Pyridium] 200 mg PO BID 3 Days #6 tab 02/22/18 Sulfamethoxazole-Trimethoprim [Bactrim Ds 800-160 mg] 1 tab PO BID 3 Days #6 tab 02/22/18 Ibuprofen 800 mg PO Q8HR PRN #30 tab 03/15/18 Promethazine Tab [Phenergan Tablet] 25 mg PO Q6H PRN #15 tab 03/15/18 Sulfamethoxazole-Trimethoprim [Bactrim Ds 800-160 mg] 2 tab PO BID #14 tab 03/15 Baclofen 20 mg PO BID #14 tab 05/27/18 Additional Instructions: May take ALEVE(over the counter) 1-2 tablets am/pm for pain as needed;follow up with primary MD May 2018
[2018-05-27 11:02] VITALS: O2SAT 99
[2018-05-27 11:59] VITALS: BP 117/70
== END 2018-05-27 11:58 | disposition home or self-care (01) ==
LOC: ER 09:52
DX: R35.0 Frequency of micturition (principal); M54.5 Low back pain; R30.0 Dysuria; R11.2 Nausea with vomiting, unspecified; Z87.891 Personal history of nicotine dependence

== ENCOUNTER 2018-07-23 15:04 | Emergency (ER) | payer SELFPAY ==
[2018-07-23 15:17] VITALS: TEMP 99.3
--- NOTE | 2018-07-23 15:18 | ED.PDOC ---
History of Present Illness - General Chief Complaint: GI Problem Stated Complaint: N/V/D Time Seen by Provider: 07/23/18 15:18 Information Source: patient Exam Limitations: no limitations - History of Present Illness Initial Comments: Elizabeth Buckner 23 y/o female came to ER with intermittent nausea/vomiting and diarrhea for the last 3 days stated that she ate [place] lettuce and heard in the news about possible contamination.I told her there are just [place] the [place] that got [place] from [place].Also she had intermittent abdominal cramps.No N/V while in ER. Abdominal Pain Onset Location: generalized abdomen Pain Radiation: no radiation Quality: moderate, cramping Timing/Duration: days - 3 Improving Factors: nothing Worsening Factors: eating Associated Symptoms: other - see hpi Review of Systems - Review of Systems Gastrointestinal/Abdominal: States: see HPI All other Systems: Reviewed and Negative, No Change from Baseline Past Medical History (General) - Patient Medical History Hx Seizures: No Hx Stroke: No Hx Dementia: No Hx Asthma: No Hx of COPD: No Hx Cardiac Disorders: No Hx Congestive Heart Failure: No Hx Pacemaker: No Hx Hypertension: No Hx Thyroid Disease: No Hx Diabetes: No Hx Gastroesophageal Reflux: No Hx Renal Disease: No Hx Cancer: No Hx of HIV: No Hx Hepatitis C: No Hx MRSA: No Surgical History: other - Vaccination History Hx Tetanus, Diphtheria Vaccination: Yes Hx Influenza Vaccination: No Hx Pneumococcal Vaccination: No - Social History Hx Tobacco Use: Yes Hx Alcohol Use: Yes - occ Hx Physical Abuse: No Hx Emotional Abuse: No - Female History Hx Last Menstrual Period: 05/10/18 Patient : No - unknown Family Medical History - Family History Father Family History: Unknown Living Status: Unknown Hx Family Hypertension: Yes Hx Cardiac Disease: Yes - dad Hx Family Cancer: Yes - breast-grandma Physical Exam - Physical Exam General Appearance: Alert, Comfortable, No apparent distress Eyes, Ears, Nose, Throat Exam: PERRL/EOMI, normal ENT inspection, pharynx normal Neck: non-tender, full range of motion, supple Respiratory: chest non-tender, lungs clear, normal breath sounds Cardiovascular/Chest: normal peripheral pulses, regular rate, rhythm, no murmur Peripheral Pulses: No deficit Gastrointestinal/Abdominal: non tender, soft, no organomegaly Back Exam: no CVA tenderness, no vertebral tenderness Neurologic: no motor/sensory deficits, alert, oriented x 3 Skin Exam: normal color, warm/dry Lymphatic: no adenopathy Progress - Progress Progress: 07/23/18 16:04 Vital Signs - 8 hr 07/23/18 15:10 Temperature 99.3 F Pulse Rate [ 70 left brachial] Respiratory 20 Rate Blood Pressure 114/75 [left brachial] O2 Sat by Pulse 98 Oximetry - Results/Orders Results/Orders: 07/23/18 15:19 IV Care:Saline Lock per Protoc QSHIFT 07/23/18 15:39 URINE CULTURE W/COLONY COUNT Stat 07/23/18 16:54 [id number] SODIUM [Rocephin] 1 gm Sodium Chl 0.9% 50Ml Min-Bag+ [NS 50ml MINI -BAG+] 50 ml IVPB ONCE Laboratory Results - last 24 hr 07/23/18 07/23/18 07/23/18 15:36 15:36 15:36 WBC 9.9 RBC 4.61 Hgb 14.4 Hct 43.3 MCV 94.0 MCH 31.2 H MCHC 33.2 RDW 12.7 Plt Count 243 MPV 9.8 Absolute Neuts (auto) 5.90 Absolute Lymphs (auto) 2.90 Absolute Monos (auto) 0.80 Absolute Eos (auto) 0.30 Absolute Basos (auto) 0.10 Neutrophils % 59.4 Lymphocytes % 29.4 Monocytes % 7.9 Eosinophils % 2.6 Basophils % 0.7 Sodium 139 Potassium 3.5 L Chloride 101 Carbon Dioxide 28 Anion Gap 13.5 BUN 13 Creatinine 0.63 BUN/Creatinine Ratio 20.6 H Random Glucose 113 H Serum Osmolality 278.5 Calcium 10.1 Total Bilirubin 0.4 AST 28 ALT 28 Alkaline Phosphatase 47 Serum Total Protein 7.6 Albumin 4.5 Globulin 3.1 Albumin/Globulin Ratio 1.5 Lipase 23 Serum HCG, Qual Negative Urine Color Urine Appearance Urine pH Ur Specific [place] Urine Protein Urine Glucose (UA) Urine Ketones Urine Blood Urine Nitrite Urine Bilirubin Urine Urobilinogen Ur Leukocyte Esterase Urine RBC Urine WBC Ur Epithelial Cells Urine Bacteria 07/23/18 15:39 WBC RBC Hgb Hct MCV MCH MCHC RDW Plt Count MPV Absolute Neuts (auto) Absolute Lymphs (auto) Absolute Monos (auto) Absolute Eos (auto) Absolute Basos (auto) Neutrophils % Lymphocytes % Monocytes % Eosinophils % Basophils % Sodium Potassium Chloride Carbon Dioxide Anion Gap BUN Creatinine BUN/Creatinine Ratio Random Glucose Serum Osmolality Calcium Total Bilirubin AST ALT Alkaline Phosphatase Serum Total Protein Albumin Globulin Albumin/Globulin Ratio Lipase Serum HCG, Qual Urine Color Yellow Urine Appearance Cloudy Urine pH 7.5 Ur Specific [place] 1.020 Urine Protein Negative Urine Glucose (UA) Negative Urine Ketones Negative Urine Blood Negative Urine Nitrite Negative Urine Bilirubin Negative Urine Urobilinogen 0.2 Ur Leukocyte Esterase Small H Urine RBC 1-3 Urine WBC 10-20 H Ur Epithelial Cells 0 Urine Bacteria 2+ H discuss all test result with patient and advised to read discharge instructions; no further vomiting noted while in er Departure - Departure Clinical Impression: Nausea vomiting and diarrhea Urinary tract infection Qualifiers: Urinary tract infection type: site unspecified Hematuria presence: without hematuria Qualified Code(s): N39.0 - Urinary tract infection, site not specified Time of Disposition: 17:01 Disposition: Discharge to Home or Self Care Condition: Fair Departure Forms: ED Discharge - Pt. Copy, Patient Portal Self Enrollment Instructions: Diarrhea in Adolescents and Adults, [place] Diet, Viral Gastroenteritis, Adult (DC) Diet: other - Avoid GREASY/SPICY foods for 3 days;may also have bananas,rice toast bread,meir vance ,tea Referrals: Kandy Healy, [facility] [Primary Care Provider] - 1-2 Weeks Prescriptions: Nitrofurantoin Monohydrate Mac [Macrobid] 100 mg PO BID #10 capsule Home Medications: Ambulatory Orders Nitrofurantoin Monohydrate Mac [Macrobid] 100 mg PO BID #10 capsule 07/23/18 Additional Instructions: Return to ER as needed;follow up with primary Md 26 Jul 2018 as needed
[2018-07-23] MEDS ORDERED: PROMETHAZINE HCL INJ 25 MG/ML VIAL IM ONE (15:19)
[2018-07-23] MEDS ORDERED: MORPHINE SULFATE INJ 10 MG/ML VIAL IV ONE (15:19)
[2018-07-23] MEDS ORDERED: LACTATED RINGERS 1,000 ML IVS ONE (15:19)
[2018-07-23] MEDS ORDERED: HYOSCYAMINE SULFATE 0.5 MG/ML VIAL IV ONE (16:01)
[2018-07-23] MEDS ORDERED: cefTRIAXone SODIUM 1 GM in SODIUM CHL 0.9% 50ML MIN-BAG+ 50 ML IVPB ONE (16:54)
[2018-07-23] MEDS ORDERED: SODIUM CHL 0.9% 50ML MIN-BAG+ 50 ML IVPB ONE (17:02)
[2018-07-23] MEDS ORDERED: cefTRIAXone SODIUM 1 GM VIAL ONE (17:02)
[2018-07-23 18:20] VITALS: BP 98/64; O2SAT 96
== END 2018-07-23 17:45 | disposition home or self-care (01) ==
LOC: ER 15:04
DX: N39.0 Urinary tract infection, site not specified (principal); R11.2 Nausea with vomiting, unspecified; R19.7 Diarrhea, unspecified; Z87.891 Personal history of nicotine dependence
CPT/HCPCS: 36415; 80053; 81001; 83690; 84703; 85025; 87086; J0696; J2270; J2550; J7050; J7120

== ENCOUNTER 2018-10-15 11:48 | Emergency (ER) | payer SELFPAY ==
--- NOTE | 2018-10-15 14:09 | CT ---
EXAM DESCRIPTION: CT ABDOMEN AND PELVIS WITH CONTRAST CLINICAL HISTORY: ABDOMINAL PAIN COMPARISON: Ultrasound gallbladder September 21, 2017, ultrasound abdomen July 27, 2017 TECHNIQUE: CT of the abdomen and pelvis is performed during IV bolus administration of routine adult dose of nonionic iodinated contrast. No oral contrast. FINDINGS: The lung bases are clear of infiltrate. Heart size is normal. CT abdomen Liver is normal in size and parenchymal appearance. No calcified stones in the gallbladder. Spleen, pancreas, and kidneys are unremarkable. No renal stones or hydronephrosis. No inflammation around the pancreas. There is no lymphadenopathy, inflammation, or free fluid observed. CT PELVIS: Normal appearance of the uterus and ovaries. Normal appendix. Pelvic bowel loops appear normal. No free fluid or mass in the pelvis. Minimal fluid in the endometrial canal of the uterus. No stones are seen in the distal ureters or in the bladder. Bones are unremarkable. Coronal and sagittal reformatted images confirm the findings. IMPRESSION: No acute upper abdominal process. No acute pelvic process. This exam was performed according to our departmental dose-optimization program, which includes automated exposure control, adjustment of the mA and/or kV according to patient size and/or use of iterative reconstruction technique. Electronically signed by: Thomas Hernández MD 10/15/2018 2:07 PM [facility]
--- NOTE | 2018-10-15 14:19 | ED.PDOC ---
History of Present Illness - General Chief Complaint: GI Problem Stated Complaint: abdominal pain Time Seen by Provider: 10/15/18 11:56 Source: patient, RN notes reviewed Additional Information: 23 YEAR OLD PRESENTS WITH CHRONIC RECURRENT ABDOMINAL PAIN FOR MONTHS SHE HAS NOT FELT ANY BETTER SHE HAS LOWER ABDOMINAL PAIN AT TIMES WITH ALTERNATING DIARRHEA AND CONSTIPATION SHE HAS SOMETIMES PRESSURE LIKE DISCOMFORT IN THE RECTAL PELVIC AREA WITH NO BOWEL MOVEMENT SHE HAS NO WEIGHT LOSS NO LOSS OF BLOOD IN STOOLS HER PERIODS ARE NORMAL TODAY HER TEST UA LABS ARE ALL NORMAL CT IS NEG NORMAL GB LIVER KIDNEY SPLEEN NORMAL OVARIES NO FREE FLUID - History of Present Illness Timing/Duration: intermittent Severity: moderate Improving Factors: nothing Worsening Factors: nothing Associated Symptoms: weakness Allergies/Adverse Reactions: Allergies NO KNOWN ALLERGY Allergy (Verified 09/21/17 08:21) Home Medications: Ambulatory Orders Nitrofurantoin Monohydrate Mac [Macrobid] 100 mg PO BID #10 capsule 07/23/18 Review of Systems - Review of Systems Constitutional: States: no symptoms reported EENTM: States: no symptoms reported Respiratory: States: no symptoms reported Cardiology: States: no symptoms reported Gastrointestinal/Abdominal: States: see HPI Genitourinary: States: no symptoms reported Musculoskeletal: States: no symptoms reported Skin: States: no symptoms reported Neurological: States: no symptoms reported Endocrine: States: no symptoms reported Hematologic/Lymphatic: States: no symptoms reported Past Medical History (General) - Patient Medical History Hx Seizures: No Hx Stroke: No Hx Dementia: No Hx Asthma: No Hx of COPD: No Hx Cardiac Disorders: No Hx Congestive Heart Failure: No Hx Pacemaker: No Hx Hypertension: No Hx Thyroid Disease: No Hx Diabetes: No Hx Gastroesophageal Reflux: No Hx Renal Disease: No Hx Cancer: No Hx of HIV: No Hx Hepatitis C: No Hx MRSA: No Surgical History: other - Vaccination History Hx Tetanus, Diphtheria Vaccination: Yes - 2016 Hx Influenza Vaccination: No Hx Pneumococcal Vaccination: No - Social History Hx Tobacco Use: Yes Hx Alcohol Use: Yes - occ Hx Physical Abuse: No Hx Emotional Abuse: No - Female History Patient is a Female of Child Bearing Age (10 -59 yrs old): Yes Hx Last Menstrual Period: 05/10/18 Patient : No - unknown Family Medical History - Family History Father Family History: Unknown Living Status: Unknown Hx Family Hypertension: Yes Hx Cardiac Disease: Yes - dad Hx Family Cancer: Yes - breast-grandma Physical Exam - Physical Exam General Appearance: Alert, Comfortable Ears, Nose, Throat: hearing grossly normal, normal ENT inspection, normal pharynx Neck: non-tender, full range of motion, supple Respiratory: chest non-tender, normal breath sounds, no respiratory distress, no accessory muscle use, respiratory distress Cardiovascular/Chest: normal peripheral pulses, regular rate, rhythm, no edema, no gallop, no JVD, no murmur Back Exam: normal inspection Extremity: normal range of motion, non-tender Neurologic: communications maintainer II-XII nml as tested, no motor/sensory deficits, normal mood/affect, oriented x 3 Lymphatic: no adenopathy Departure - Departure Clinical Impression: Irritable bowel syndrome Time of Disposition: 15:03 Disposition: Discharge to Home or Self Care Condition: Good Departure Forms: ED Discharge - Pt. Copy, Patient Portal Self Enrollment Referrals: Kandy Healy NP [Primary Care Provider] - 1-2 Weeks Home Medications: Ambulatory Orders Nitrofurantoin Monohydrate Mac [Macrobid] 100 mg PO BID #10 capsule 07/23/18
[2018-10-15 18:57] VITALS: BP 111/80; TEMP 98.2; O2SAT 95
== END 2018-10-15 15:45 ==
LOC: ER 11:48
DX: K58.9 Irritable bowel syndrome, unspecified (principal); Z87.891 Personal history of nicotine dependence

== ENCOUNTER 2018-11-19 13:18 | Emergency (ER) | payer SELFPAY ==
--- NOTE | 2018-11-19 13:37 | ED.PDOC ---
History of Present Illness - General Chief Complaint: General Stated Complaint: N/V/ab pain Time Seen by Provider: 11/19/18 13:31 Source: patient Exam Limitations: no limitations - History of Present Illness Initial Comments: Patient presents with N/V/D/RUQ pain since yesterday. The pain is constant but intermittent in intensity, worse after eating, 4-5 previous episodes. Her boyfriend has diarrhea. No other similarly sick contacts. Pain is "sometimes cramping, sometimes sharp". No other complaints. No previous abdominal surgeries. Timing/Duration: 24 hours Severity: moderate Improving Factors: rest Worsening Factors: eating Associated Symptoms: other - as in HPI Allergies/Adverse Reactions: Allergies NO KNOWN ALLERGY Allergy (Verified 11/19/18 13:38) Home Medications: Ambulatory Orders Ketorolac Tromethamine [Toradol Tabs] 10 mg PO Q6HRS #12 tab 11/19/18 Ondansetron HCl [Zofran] 4 mg PO Q4HR #20 tab 11/19/18 Review of Systems - Review of Systems Constitutional: States: no symptoms reported EENTM: States: no symptoms reported Respiratory: States: no symptoms reported Cardiology: States: no symptoms reported Gastrointestinal/Abdominal: States: see HPI Genitourinary: States: no symptoms reported Musculoskeletal: States: no symptoms reported Skin: States: no symptoms reported Neurological: States: no symptoms reported Endocrine: States: no symptoms reported Hematologic/Lymphatic: States: no symptoms reported Past Medical History (General) - Patient Medical History Hx Seizures: No Hx Stroke: No Hx Dementia: No Hx Asthma: No Hx of COPD: No Hx Cardiac Disorders: No Hx Congestive Heart Failure: No Hx Pacemaker: No Hx Hypertension: No Hx Thyroid Disease: No Hx Diabetes: No Hx Gastroesophageal Reflux: No Hx Renal Disease: No Hx Cancer: No Hx of HIV: No Hx Hepatitis C: No Hx MRSA: No - Vaccination History Hx Tetanus, Diphtheria Vaccination: Yes - 2016 Hx Influenza Vaccination: No Hx Pneumococcal Vaccination: No - Social History Hx Tobacco Use: Yes Hx Alcohol Use: Yes - occ Hx Physical Abuse: No Hx Emotional Abuse: No - Female History Hx Last Menstrual Period: 05/10/18 Patient : No - unknown Family Medical History - Family History Father Family History: Unknown Living Status: Unknown Hx Family Hypertension: Yes Hx Cardiac Disease: Yes - dad Hx Family Cancer: Yes - breast-grandma Physical Exam - Physical Exam General Appearance: Alert Eye Exam: bilateral normal Ears, Nose, Throat: normal ENT inspection Neck: non-tender, full range of motion, supple Respiratory: lungs clear, normal breath sounds Cardiovascular/Chest: normal peripheral pulses, regular rate, rhythm Gastrointestinal/Abdominal: normal bowel sounds, non tender, soft Back Exam: normal inspection, no CVA tenderness Extremity: normal range of motion, non-tender, normal inspection Neurologic: no motor/sensory deficits, alert, normal mood/affect, oriented x 3 Skin Exam: normal color Lymphatic: no adenopathy Progress - Progress Progress: 11/19/18 15:01 Laboratory Tests 11/19/18 11/19/18 11/19/18 13:36 13:36 13:36 WBC 9.7 RBC 4.71 Hgb 15.2 Hct 44.8 MCV 95.1 MCH 32.3 H MCHC 33.9 RDW 12.5 Plt Count 244 MPV 9.5 Absolute Neuts (auto) 5.90 Absolute Lymphs (auto) 2.50 Absolute Monos (auto) 0.90 H Absolute Eos (auto) 0.30 Absolute Basos (auto) 0.10 Neutrophils % 60.9 Lymphocytes % 25.4 Monocytes % 9.3 H Eosinophils % 3.4 Basophils % 1.0 Sodium 137 Potassium 3.9 Chloride 103 Carbon Dioxide 26 Anion Gap 11.9 L BUN 10 Creatinine 0.73 BUN/Creatinine Ratio 13.7 Random Glucose 90 Serum Osmolality 272.4 L Calcium 9.5 Total Bilirubin 0.5 AST 22 ALT 25 Alkaline Phosphatase 52 Serum Total Protein 7.5 Albumin 4.4 Globulin 3.1 Albumin/Globulin Ratio 1.4 Lipase 39 Urine Color Urine Appearance Urine pH Ur Specific [place] Urine Protein Urine Glucose (UA) Urine Ketones Urine Blood Urine Nitrite Urine Bilirubin Urine Urobilinogen Ur Leukocyte Esterase Urine RBC Urine WBC Ur Epithelial Cells Amorphous Sediment Urine Bacteria Urine HCG, Qual Negative 11/19/18 14:16 WBC RBC Hgb Hct MCV MCH MCHC RDW Plt Count MPV Absolute Neuts (auto) Absolute Lymphs (auto) Absolute Monos (auto) Absolute Eos (auto) Absolute Basos (auto) Neutrophils % Lymphocytes % Monocytes % Eosinophils % Basophils % Sodium Potassium Chloride Carbon Dioxide Anion Gap BUN Creatinine BUN/Creatinine Ratio Random Glucose Serum Osmolality Calcium Total Bilirubin AST ALT Alkaline Phosphatase Serum Total Protein Albumin Globulin Albumin/Globulin Ratio Lipase Urine Color Yellow Urine Appearance Cloudy Urine pH 8.5 H Ur Specific [place] 1.020 Urine Protein Trace Urine Glucose (UA) Negative Urine Ketones Negative Urine Blood Negative Urine Nitrite Negative Urine Bilirubin Negative Urine Urobilinogen 0.2 Ur Leukocyte Esterase Negative Urine RBC 0 Urine WBC 0 Ur Epithelial Cells 5-10 Amorphous Sediment Trace Urine Bacteria Rare Urine HCG, Qual Patient's pain improved with toradol 30 mg IV x one. She did not have any N/V/D while in the E.D. It is possible that she has gastroenteritis, biliary colic, appendiciti, or colitis. However, her wbc was normal and she was afebrile. She has had several episodes similar to this and has received enough CT scans at this point. Clinically, this did not appear to be appendicitis. Patient was instructed to follow up with her pcp or Dr. Martinez for further evaluation of the gall bladder. Care instructions given. E.R. warnings given. Questions were elicited and answered. Patient voiced understanding and agreement with the plan. Departure - Departure Clinical Impression: Nausea & vomiting, Diarrhea Disposition: Discharge to Home or Self Care Condition: Good Departure Forms: ED Discharge - Pt. Copy, Patient Portal Self Enrollment Diet: low fat, low cholesterol Activity: increase activity as tolerated Referrals: Kandy Healy, [employer] OPERATOR [Primary Care Provider] - 1-2 Weeks Prescriptions: Ondansetron HCl [Zofran] 4 mg PO Q4HR #20 tab Ketorolac Tromethamine [Toradol Tabs] 10 mg PO Q6HRS #12 tab Home Medications: Ambulatory Orders Ketorolac Tromethamine [Toradol Tabs] 10 mg PO Q6HRS #12 tab 11/19/18 Ondansetron HCl [Zofran] 4 mg PO Q4HR #20 tab 11/19/18 Additional Instructions: Increase oral fluids. Take medications as prescribed. Do not take the ketorolac for more than 4 more days due to risks on the kidneys and if you become . See your regular doctor or Dr. Martinez regarding further evaluation of your gall bladder. Return to the E.R. for worsening pain, if pain moves to the right lower side, or for temperature above 100.4.
[2018-11-19] MEDS ORDERED: KETOROLAC TROMETHAMINE INJ 30 MG/ML VIAL IV ONE (14:25)
[2018-11-19 15:26] VITALS: BP 115/75; TEMP 98.9; O2SAT 98
== END 2018-11-19 15:26 | disposition home or self-care (01) ==
LOC: ER 13:18
DX: R11.2 Nausea with vomiting, unspecified (principal); R19.7 Diarrhea, unspecified
CPT/HCPCS: 80053; 81001; 81025; 83690; 85025; J1885

== ENCOUNTER 2018-11-30 21:07 | Emergency (ER) | payer SELFPAY ==
[2018-11-30 21:32] VITALS: O2SAT 99
[2018-11-30] MEDS: KETOROLAC TROMETHAMINE INJ 30 MG/ML VIAL IM ONE (21:59)
--- NOTE | 2018-12-01 | ED.PDOC ---
History of Present Illness - General Chief Complaint: Abdominal Pain Stated Complaint: mid pelvic pain radiates to rt lateral side Time Seen by Provider: 11/30/18 21:08 Source: patient Exam Limitations: no limitations - History of Present Illness Initial Comments: the patient's 23-year-old female presenting to the emergency room secondary to recurrent abdominal pain primarily in the suprapubic to right lower abdomen to right back area. He got severe yesterday. It is made worse with any movement. It is made worse with straining on the toilet. It is significantly made worse with intercourse. No vaginal discharge. The patient has had this pain is similar pain for the last year and a half. She has had multiple CT scans along with multiple ultrasounds. It has been thought that she has had gallbladder dysfunction, irritable bowel syndrome, recurrent urinary tract infections as the primary cause. About 14 months ago the patient had a miscarriage early on the . She is now having irregular periods on top of her other symptoms. Pain is severe but does respond to anti-inflammatories. She does have some depression along with it.The patient attempted intercourse earlier today and had excruciating pain. The patient is deferring a pelvic exam at this time.the patient has had numerous radiological studies of the abdomen over the past year and a half. The last was just a few months ago. She was in here a couple of weeks ago for abdominal pain and had extensive lab work as well. Timing/Duration: unsure Severity: severe Improving Factors: nothing Worsening Factors: nothing Associated Symptoms: loss of appetite, nausea/vomiting Allergies/Adverse Reactions: Allergies NO KNOWN ALLERGY Allergy (Verified 11/19/18 13:38) Home Medications: Ambulatory Orders Ketorolac Tromethamine [Toradol Tabs] 10 mg PO Q6HRS #12 tab 11/19/18 Ondansetron HCl [Zofran] 4 mg PO Q4HR #20 tab 11/19/18 Review of Systems - Review of Systems Constitutional: States: no symptoms reported EENTM: States: no symptoms reported Respiratory: States: no symptoms reported Cardiology: States: no symptoms reported Gastrointestinal/Abdominal: States: abdominal pain, nausea, other - occasional pain with bowel movements Genitourinary: States: dysuria - intermittent, frequency. Denies: discharge Musculoskeletal: States: back pain Skin: States: no symptoms reported Neurological: States: anxiety, depressed All other Systems: No Change from Baseline Past Medical History (General) - Patient Medical History Hx Seizures: No Hx Stroke: No Hx Dementia: No Hx Asthma: No Hx of COPD: No Hx Cardiac Disorders: No Hx Congestive Heart Failure: No Hx Pacemaker: No Hx Hypertension: No Hx Thyroid Disease: No Hx Diabetes: No Hx Gastroesophageal Reflux: No Hx Renal Disease: No Hx Cancer: No Hx of HIV: No Hx Hepatitis C: No Hx MRSA: No Surgical History: other - Vaccination History Hx Tetanus, Diphtheria Vaccination: Yes - 2016 Hx Influenza Vaccination: No Hx Pneumococcal Vaccination: No - Social History Hx Tobacco Use: Yes Hx Alcohol Use: Yes - occ Hx Substance Use: No Hx Substance Use Treatment: No Hx Depression: No Hx Physical Abuse: No Hx Emotional Abuse: No - Female History Hx Last Menstrual Period: 05/10/18 Patient : No - unknown Family Medical History - Family History Father Family History: Unknown Living Status: Unknown Hx Family Hypertension: Yes Hx Cardiac Disease: Yes - dad Hx Family Cancer: Yes - breast-grandma Physical Exam - Physical Exam General Appearance: Alert, Anxious, Obvious distress Eye Exam: bilateral normal Ears, Nose, Throat: hearing grossly normal, normal ENT inspection Neck: full range of motion, supple Respiratory: lungs clear, normal breath sounds, no respiratory distress, no accessory muscle use Cardiovascular/Chest: normal peripheral pulses, regular rate, rhythm, no edema Peripheral Pulses: radial,right: 2+, radial,left: 2+, dorsalis pedis,right: 2+, dorsalis pedis,left: 2+ Gastrointestinal/Abdominal: soft, other - obese. Suprapubic and right lateral abdominal pain and right lower back pain and palpation. No palpable mass. No bruising. Rectal Exam: deferred - pelvic exam and rectal exam were deferred per patient request Back Exam: CVA tenderness (R) - lower lumbar Extremity: normal range of motion, non-tender, normal inspection, no pedal edema, normal capillary refill Neurologic: system safety manager II-XII nml as tested, alert, normal mood/affect, oriented x 3 Skin Exam: normal color Comments: Vital Signs - 24 hr 11/30/18 21:26 Temperature 99.1 F Pulse Rate [ 81 left] Respiratory 18 Rate Blood Pressure 123/85 [left] O2 Sat by Pulse 99 Oximetry Progress - Progress Progress: 12/01/18 00:05 the patient's 23-year-old female presenting with abdominal pain and a extended history of abdominal pain along with numerous other symptoms that do sound consistent with endometriosis. I'm going to place the patient back on control. She does need to get set up with an LICENSED NURSE PRACTITIONER for definitive evaluation. The patient can take [id number] ibuprofen or Aleve for the pain gets at its worst. The patient did receive empirical dosings for Diflucan, metronidazole azithromycin and Rocephin for any lingering pelvic-type infection. She does not have any history of pelvic inflammatory disease. GC chlamydia test is a send out. ER warnings were given. Follow-up with ballet dancer. Laboratory work done here today is reassuring. - Results/Orders Results/Orders: Laboratory Tests 11/30/18 11/30/18 11/30/18 21:25 21:35 21:48 WBC 9.6 RBC 4.37 Hgb 14.1 Hct 41.6 MCV 95.2 MCH 32.4 H MCHC 34.0 RDW 12.8 Plt Count 237 MPV 9.2 Absolute Neuts (auto) 5.10 Absolute Lymphs (auto) 3.20 Absolute Monos (auto) 1.00 H Absolute Eos (auto) 0.20 Absolute Basos (auto) 0.10 Neutrophils % 53.4 Lymphocytes % 32.9 Monocytes % 10.4 H Eosinophils % 2.5 Basophils % 0.8 Sodium Potassium Chloride Carbon Dioxide Anion Gap BUN Creatinine BUN/Creatinine Ratio Random Glucose Serum Osmolality Lactic Acid Calcium Magnesium Total Bilirubin AST ALT Alkaline Phosphatase Serum Total Protein Albumin Globulin Albumin/Globulin Ratio Amylase Lipase TSH Urine Color Yellow Urine Appearance Clear Urine pH 7.0 Ur Specific [place] 1.025 Urine Protein Negative Urine Glucose (UA) Negative Urine Ketones Negative Urine Blood Negative Urine Nitrite Negative Urine Bilirubin Negative Urine Urobilinogen 1.0 Ur Leukocyte Esterase Negative Urine RBC 0 Urine WBC 3-5 H Ur Epithelial Cells 3-5 Urine Bacteria Rare Urine HCG, Qual Negative 11/30/18 11/30/18 21:48 21:48 WBC RBC Hgb Hct MCV MCH MCHC RDW Plt Count MPV Absolute Neuts (auto) Absolute Lymphs (auto) Absolute Monos (auto) Absolute Eos (auto) Absolute Basos (auto) Neutrophils % Lymphocytes % Monocytes % Eosinophils % Basophils % Sodium 138 Potassium 3.8 Chloride 106 Carbon Dioxide 24 Anion Gap 11.8 L BUN 12 Creatinine 0.67 BUN/Creatinine Ratio 17.9 Random Glucose 103 Serum Osmolality 275.7 Lactic Acid 1.2 Calcium 9.1 Magnesium 2.1 Total Bilirubin 0.4 AST 23 ALT 24 Alkaline Phosphatase 46 Serum Total Protein 7.4 Albumin 4.5 Globulin 2.9 Albumin/Globulin Ratio 1.6 Amylase 81 Lipase 50 TSH 2.01 Urine Color Urine Appearance Urine pH Ur Specific [place] Urine Protein Urine Glucose (UA) Urine Ketones Urine Blood Urine Nitrite Urine Bilirubin Urine Urobilinogen Ur Leukocyte Esterase Urine RBC Urine WBC Ur Epithelial Cells Urine Bacteria Urine HCG, Qual Departure - Departure Clinical Impression: Endometriosis Disposition: Discharge to Home or Self Care Condition: Fair Departure Forms: ED Discharge - Pt. Copy, Patient Portal Self Enrollment Instructions: Endometriosis (DC) Diet: bland diet Activity: increase activity as tolerated - Pelvic rest for now Referrals: Kandy Healy NP [Primary Care Provider] - 1-2 Weeks Home Medications: Ambulatory Orders Ketorolac Tromethamine [Toradol Tabs] 10 mg PO Q6HRS #12 tab 11/19/18 Ondansetron HCl [Zofran] 4 mg PO Q4HR #20 tab 11/19/18 Additional Instructions: the patient's 23-year-old female presenting with abdominal pain and a extended history of abdominal pain along with numerous other symptoms that do sound consistent with endometriosis. I'm going to place the patient back on control. She does need to get set up with an LICENSED NURSE PRACTITIONER for definitive evaluation. The patient can take [id number] ibuprofen or Aleve for the pain gets at its worst. The patient did receive empirical dosings for Diflucan, metronidazole azithromycin and Rocephin for any lingering pelvic-type infection. She does not have any history of pelvic inflammatory disease. chlamydia test is a send out. ER warnings were given. Follow-up with ballet dancer. Laboratory work done here today is reassuring.
[2018-12-01] MEDS ORDERED: LIDOCAINE 1% 2 ML VIAL INJ ONE (00:04)
[2018-12-01] MEDS: AZITHROMYCIN 250 MG TAB PO ONE (00:06)
[2018-12-01] MEDS: metroNIDAZOLE 500 MG TAB PO ONE (00:07)
[2018-12-01] MEDS: cefTRIAXone SODIUM 1 GM VIAL IM ONE (00:07)
[2018-12-01] MEDS: FLUCONAZOLE 100 MG TAB PO ONE (00:07)
[2018-12-01 00:27] VITALS: BP 122/79; TEMP 98.7
== END 2018-12-01 00:26 | disposition home or self-care (01) ==
LOC: ER 21:07
DX: N80.9 Endometriosis, unspecified (principal); Z87.891 Personal history of nicotine dependence
CPT/HCPCS: 36415; 80053; 81001; 81025; 82150; 83605; 83690; 83735; 84443; 85025; 87491; 87591; J0696; J1885; Q0144

== ENCOUNTER 2019-01-03 07:59 | Emergency (ER) | payer SELFPAY ==
--- NOTE | 2019-01-03 08:18 | ED.PDOC ---
History of Present Illness - General Chief Complaint: General Stated Complaint: sore throat/bodyaches Time Seen by Provider: 01/03/19 08:17 Source: patient Exam Limitations: no limitations - History of Present Illness Initial Comments: Elizabeth Buckner 23 y/o female stated that she had been having dry cough,body aches and chest heaviness for the last 3 days and with loss of appetite.Also had some urinary frequency but no dysuria.No chronic medical problem;no ill contact. Timing/Duration: other - 3 days Severity: moderate Improving Factors: nothing, eating Associated Symptoms: other - see hpi Allergies/Adverse Reactions: Allergies NO KNOWN ALLERGY Allergy (Verified 11/19/18 13:38) Home Medications: Ambulatory Orders Ketorolac Tromethamine [Toradol Tabs] 10 mg PO Q6HRS #12 tab 11/19/18 Ondansetron HCl [Zofran] 4 mg PO Q4HR #20 tab 11/19/18 Review of Systems - Review of Systems Constitutional: States: see HPI, malaise EENTM: States: see HPI, throat pain Respiratory: States: see HPI, cough Cardiology: States: no symptoms reported Gastrointestinal/Abdominal: States: no symptoms reported Genitourinary: States: see HPI, frequency All other Systems: Reviewed and Negative, No Change from Baseline Past Medical History (General) - Patient Medical History Hx Seizures: No Hx Stroke: No Hx Dementia: No Hx Asthma: No Hx of COPD: No Hx Cardiac Disorders: No Hx Congestive Heart Failure: No Hx Pacemaker: No Hx Hypertension: No Hx Thyroid Disease: No Hx Diabetes: No Hx Gastroesophageal Reflux: No Hx Renal Disease: No Hx Cancer: No Hx of HIV: No Hx Hepatitis C: No Hx MRSA: No Surgical History: no surgical history - Vaccination History Hx Tetanus, Diphtheria Vaccination: Yes - 2016 Hx Influenza Vaccination: No Hx Pneumococcal Vaccination: No - Social History Hx Tobacco Use: Yes Hx Alcohol Use: Yes - occ Hx Substance Use: No Hx Substance Use Treatment: No Hx Depression: No Hx Physical Abuse: No Hx Emotional Abuse: No - Female History Hx Last Menstrual Period: 11/30/18 Patient : No - unknown Family Medical History - Family History Father Family History: Unknown Living Status: Unknown Hx Family Hypertension: Yes Hx Cardiac Disease: Yes - dad Hx Family Cancer: Yes - breast-grandma Physical Exam - Physical Exam General Appearance: Alert, Comfortable, No apparent distress Eye Exam: bilateral normal Ears, Nose, Throat: hearing grossly normal, normal ENT inspection, nasal congestion, other - pharyngeal eythema mild Neck: non-tender, full range of motion, supple Respiratory: chest non-tender, lungs clear, normal breath sounds, no respiratory distress Cardiovascular/Chest: normal peripheral pulses, regular rate, rhythm, no murmur Peripheral Pulses: radial,right: 2+, radial,left: 2+ Gastrointestinal/Abdominal: normal bowel sounds, non tender, soft, no organomegaly Back Exam: no CVA tenderness, no vertebral tenderness Extremity: no pedal edema, no calf tenderness Neurologic: alert, oriented x 3 Skin Exam: normal color, warm/dry Progress - Progress Progress: 01/03/19 09:52 Vital Signs - 8 hr 01/03/19 07:59 Temperature 97.7 F Pulse Rate [ 82 Right Brachial] Respiratory 16 Rate Blood Pressure 119/82 [Right Arm] O2 Sat by Pulse 98 Oximetry - Results/Orders Results/Orders: 01/03/19 08:19 IV Care:Saline Lock per Protoc QSHIFT 01/03/19 08:30 STREP A SCREEN CULTURE Stat Laboratory Results - last 24 hr 01/03/19 01/03/19 01/03/19 08:30 08:40 08:40 WBC 7.8 RBC 4.41 Hgb 14.3 Hct 42.7 MCV 96.7 MCH 32.5 H MCHC 33.6 RDW 12.8 Plt Count 222 MPV 9.4 Absolute Neuts (auto) 4.00 Absolute Lymphs (auto) 2.70 Absolute Monos (auto) 0.70 Absolute Eos (auto) 0.30 Absolute Basos (auto) 0.10 Neutrophils % 50.9 Lymphocytes % 34.6 Monocytes % 9.6 H Eosinophils % 4.0 Basophils % 0.9 PT 9.7 INR 0.97 PTT (SP) 29.4 Sodium 139 Potassium 3.7 Chloride 108 Carbon Dioxide 22 Anion Gap 12.7 BUN 9 Creatinine 0.73 BUN/Creatinine Ratio 12.3 Random Glucose 113 H Serum Osmolality 277.0 Calcium 9.3 Magnesium 1.7 L Total Bilirubin 0.4 Direct Bilirubin < 0.1 Indirect Bilirubin 0.3 AST 29 ALT 32 Alkaline Phosphatase 40 L Creatine Kinase 76 CK-MB (CK-2) 0.9 CK-MB (CK-2) % Not Reportable Troponin I < 0.02 Serum Total Protein 7.4 Albumin 4.2 Serum HCG, Qual Negative Urine Color Urine Appearance Urine pH Ur Specific [place] Urine Protein Urine Glucose (UA) Urine Ketones Urine Blood Urine Nitrite Urine Bilirubin Urine Urobilinogen Ur Leukocyte Esterase Urine RBC Urine WBC Ur Epithelial Cells Urine Bacteria Monoscreen Group A Strep Rapid Negative 01/03/19 01/03/19 08:40 09:08 WBC RBC Hgb Hct MCV MCH MCHC RDW Plt Count MPV Absolute Neuts (auto) Absolute Lymphs (auto) Absolute Monos (auto) Absolute Eos (auto) Absolute Basos (auto) Neutrophils % Lymphocytes % Monocytes % Eosinophils % Basophils % PT INR PTT (SP) Sodium Potassium Chloride Carbon Dioxide Anion Gap BUN Creatinine BUN/Creatinine Ratio Random Glucose Serum Osmolality Calcium Magnesium Total Bilirubin Direct Bilirubin Indirect Bilirubin AST ALT Alkaline Phosphatase Creatine Kinase CK-MB (CK-2) CK-MB (CK-2) % Troponin I Serum Total Protein Albumin Serum HCG, Qual Urine Color Yellow Urine Appearance Sl cloudy Urine pH 5.5 Ur Specific [place] 1.025 Urine Protein Negative Urine Glucose (UA) Negative Urine Ketones Negative Urine Blood Negative Urine Nitrite Negative Urine Bilirubin Negative Urine Urobilinogen 0.2 Ur Leukocyte Esterase Negative Urine RBC 0 Urine WBC 0 Ur Epithelial Cells 0-1 Urine Bacteria 0 Monoscreen Negative Group A Strep Rapid Discuss all test results with patient - EKG/XRAY/CT XRAY: chest - no acute findings Departure - Departure Clinical Impression: Viral illness Time of Disposition: 09:54 Disposition: Discharge to Home or Self Care Condition: Fair Departure Forms: ED Discharge - Pt. Copy, Patient Portal Self Enrollment Instructions: Viral Pharyngitis (DC) Referrals: Kandy Healy NP [Primary Care Provider] - 1-2 Weeks Home Medications: Ambulatory Orders Ketorolac Tromethamine [Toradol Tabs] 10 mg PO Q6HRS #12 tab 11/19/18 Ondansetron HCl [Zofran] 4 mg PO Q4HR #20 tab 11/19/18 Additional Instructions: Increase fluid intake;May use over the counter cough /cold medicine as directed on package;Tylenol tablets one tablet am/pm 3 x a day for pain discomfort or Advil/Motrin as directed on package;Nasal saline rinse as direcred or as needed
--- NOTE | 2019-01-03 08:45 | RAD ---
EXAM DESCRIPTION: Chest,1 View CLINICAL HISTORY: Chest pressure. Sore throat FINDINGS/ IMPRESSION: Comparison 12/01/2017 Normal cardiomediastinal silhouette. No edema, infiltrates or effusions No pneumothorax. No acute bony abnormality Electronically signed by: Roosevelt Ma MD 01/03/2019 8:43 AM CDT
[2019-01-03 10:07] VITALS: BP 111/84; TEMP 97.1; O2SAT 99
== END 2019-01-03 10:08 | disposition home or self-care (01) ==
LOC: ER 07:59
DX: B34.9 Viral infection, unspecified (principal); R35.0 Frequency of micturition; R05 Cough; Z87.891 Personal history of nicotine dependence

== ENCOUNTER 2019-03-06 04:24 | Emergency (ER) | payer SELFPAY ==
[2019-03-06 04:36] VITALS: TEMP 99.3
--- NOTE | 2019-03-06 04:47 | ED.PDOC ---
History of Present Illness - General Chief Complaint: Respiratory Problem Stated Complaint: cough,congestion,body aches x's 2 days Time Seen by Provider: 03/06/19 04:39 Source: patient Exam Limitations: no limitations - History of Present Illness Comments: Elizabeth Buckner 23 y/o female came to ER with nasal congestion ,cough body aches since Thursdayfebruary 2019,had also been having body aches and non productive cough.No ill contact Timing/Duration: other - see hpi Cough Quality/Degree: dry cough Possible Cause: occasional episodes Worsening Factors: nothing Associated Symptoms: earache, nasal congestion, nasal drainage Respiratory Risk Factors: pollen Allergies/Adverse Reactions: Allergies NO KNOWN ALLERGY Allergy (Verified 03/06/19 04:36) Home Medications: Ambulatory Orders Amoxicillin [Amoxil] 1,000 mg PO BID 10 Days #40 cap 03/06/19 Pseudoephedrine W/ Dm-GG [Capmist Dm 60-15-400 mg] 1 tab PO TID #30 tab 03/06/19 predniSONE 10 mg PO DAILY 7 Days #7 tab 03/06/19 Review of Systems - Review of Systems EENTM: States: see HPI, ear pain, nose congestion Respiratory: States: see HPI, cough All other Systems: Reviewed and Negative, No Change from Baseline Past Medical History (General) - Patient Medical History Hx Seizures: No Hx Stroke: No Hx Dementia: No Hx Asthma: No Hx of COPD: No Hx Cardiac Disorders: No Hx Congestive Heart Failure: No Hx Pacemaker: No Hx Hypertension: No Hx Thyroid Disease: No Hx Diabetes: No Hx Gastroesophageal Reflux: No Hx Renal Disease: No Hx Cancer: No Hx of HIV: No Hx Hepatitis C: No Hx MRSA: No Surgical History: other - Vaccination History Hx Tetanus, Diphtheria Vaccination: Yes - 2016 Hx Influenza Vaccination: No Hx Pneumococcal Vaccination: No - Social History Hx Tobacco Use: Yes Hx Alcohol Use: Yes - occ Hx Substance Use: No Hx Substance Use Treatment: No Hx Depression: No Hx Physical Abuse: No Hx Emotional Abuse: No - Female History Hx Last Menstrual Period: 01/31/19 Patient : No - Had recent OTC-HCG test negative last week Family Medical History - Family History Father Family History: Unknown Living Status: Unknown Hx Family Hypertension: Yes Hx Cardiac Disease: Yes - dad Hx Family Cancer: Yes - breast-grandma Physical Exam - Physical Exam General Appearance: Alert, Comfortable, No apparent distress Eye Exam: bilateral normal ENT Exam: pharynx normal, nasal congestion, TM dull - right ear Neck: non-tender, supple, normal inspection Respiratory: lungs clear, normal breath sounds, no respiratory distress Cardiovascular/Chest: normal peripheral pulses, regular rate, rhythm, no murmur Gastrointestinal/Abdominal: non tender, soft Extremity: no pedal edema, no calf tenderness Neurologic: alert, oriented x 3 Skin Exam: normal color, warm/dry Progress - Progress Progress: 03/06/19 04:49 Vital Signs - 8 hr 03/06/19 03/06/19 04:28 04:30 Temperature 99.3 F Pulse Rate [ 90 monitor] Respiratory 20 20 Rate Blood Pressure 136/87 [Left Arm] O2 Sat by Pulse 97 Oximetry Departure - Departure Clinical Impression: Sinusitis nasal Qualifiers: Sinusitis location: unspecified location Chronicity: subacute Qualified Code(s): J01.90 - Acute sinusitis, unspecified Otitis media Qualifiers: Otitis media type: unspecified Laterality: right Qualified Code(s): H66.91 - Otitis media, unspecified, right ear Time of Disposition: 04:54 Disposition: Discharge to Home or Self Care Condition: Fair Departure Forms: ED Discharge - Pt. Copy, Patient Portal Self Enrollment Instructions: Sinusitis, Adult (DC), Ear Infections (Otitis Media) (DC), How to Do a Nasal Rinse Referrals: Kandy Healy NP [Primary Care Provider] - 1-2 Weeks Prescriptions: Amoxicillin [Amoxil] 1,000 mg PO BID 10 Days #40 cap predniSONE 10 mg PO DAILY 7 Days #7 tab Pseudoephedrine W/ Dm-GG [Capmist Dm 60-15-400 mg] 1 tab PO TID #30 tab Home Medications: Ambulatory Orders Amoxicillin [Amoxil] 1,000 mg PO BID 10 Days #40 cap 03/06/19 Pseudoephedrine W/ Dm-GG [Capmist Dm 60-15-400 mg] 1 tab PO TID #30 tab 03/06/19 predniSONE 10 mg PO DAILY 7 Days #7 tab 03/06/19 Additional Instructions: Continue with Afrin nose spray 2 sprays each nostril Am/Pm for nasal congestion 3 days on 3 days off;May take over the counter Aleve 1-2 tablets am/pm for pain;Nasal saline rinse-3-4 spray each nostril as needed for nasal congestion;Follow up with primary Md 08 March 2019 for recheck
[2019-03-06] MEDS ORDERED: BENZONATATE PERLES 100 MG CAP PO ONE (04:50)
[2019-03-06] MEDS ORDERED: cefTRIAXone SODIUM 1 GM VIAL IM ONE (04:50)
[2019-03-06] MEDS ORDERED: HYDROcodone 7.5MG/APAP 325MG 1 EA TAB PO ONE (04:50)
[2019-03-06] MEDS ORDERED: OXYMETAZOLINE NASAL SPRAY 15 ML BTTL BNAS PRN (04:50)
[2019-03-06] MEDS ORDERED: AMOXICILLIN 500 MG CAP PO ONE (04:50)
[2019-03-06] MEDS ORDERED: DEXAMETHASONE INJ 4 MG/ML VIAL IM ONE (04:50)
[2019-03-06] MEDS ORDERED: predniSONE 20 MG TAB PO ONE (04:52)
[2019-03-06] MEDS ORDERED: LIDOCAINE 1% 2 ML VIAL INJ ONE (04:56)
[2019-03-06 05:15] VITALS: BP 121/79; O2SAT 99
== END 2019-03-06 05:14 | disposition home or self-care (01) ==
LOC: ER 04:24
DX: J01.90 Acute sinusitis, unspecified (principal); H66.91 Otitis media, unspecified, right ear; Z87.891 Personal history of nicotine dependence
CPT/HCPCS: J0696; J1100; J7512

== ENCOUNTER 2019-05-23 18:35 | Emergency (ER) | payer SELFPAY | END 2019-05-23 19:18 | disposition left against medical advice (07) | LOC: ER 18:35 | DX: M25.532 Pain in left wrist (principal); Z53.21 Procedure and treatment not carried out due to patient leaving prior to being seen by health care provider ==

== ENCOUNTER 2019-07-06 09:24 | Emergency (ER) | payer SELFPAY ==
[2019-07-06] MEDS ORDERED: SODIUM CHLORIDE 0.9% 1000ML 1,000 ML IVS ONE (09:25)
[2019-07-06] MEDS ORDERED: ONDANSETRON INJ 4 MG/2 ML VIAL IV ONE (09:25)
== END 2019-07-06 10:50 | disposition home or self-care (01) ==
LOC: ER 09:24
DX: K52.9 Noninfective gastroenteritis and colitis, unspecified (principal); R55 Syncope and collapse
CPT/HCPCS: 80053; 81001; 83690; 84484; 84703; 85025; 87086; 93005; J2405; J7030

== ENCOUNTER 2019-08-30 10:33 | Emergency (ER) | payer SELFPAY ==
[2019-08-30 11:08] VITALS: TEMP 98.8
--- NOTE | 2019-08-30 12:41 | ED.PDOC ---
History of Present Illness - General Chief Complaint: Abdominal Pain Stated Complaint: lower abdominal cramping Time Seen by Provider: 08/30/19 10:39 Information Source: patient, other - significant other Exam Limitations: no limitations - History of Present Illness Initial Comments: 24 F EGA 4 wks presents with significant other to ED c/o acute lower abdominal cramping with associated dysuria and frequency. + H/o UTI's. Has not established care with vocational trainer yet. She is concerned because she has had a miscarriage in the past around this time. Denies associated vaginal bleeding, vaginal discharge, n/v/d, f/c, CP, SOB, peripheral edema, headache. Pt is otherwise healthy with no other signs, symptoms, or complaints. LMP: 07/25/19 Review of Systems - Review of Systems Constitutional: Denies: chills, diaphoresis, fever EENTM: Denies: double vision, throat pain Respiratory: Denies: cough, short of breath Cardiology: Denies: chest pain Gastrointestinal/Abdominal: States: abdominal pain. Denies: constipation, diarrhea, nausea, vomiting Genitourinary: States: dysuria, frequency, other - no vaginal discharge or bleeding. Denies: discharge, hematuria Musculoskeletal: Denies: back pain, joint swelling Skin: Denies: rash Neurological: Denies: headache Endocrine: Denies: increased thirst, increased urine Past Medical History (General) - Patient Medical History Hx Seizures: No Hx Stroke: No Hx Dementia: No Hx Asthma: No Hx of COPD: No Hx Cardiac Disorders: No Hx Congestive Heart Failure: No Hx Pacemaker: No Hx Hypertension: No Hx Thyroid Disease: No Hx Diabetes: No Hx Gastroesophageal Reflux: No Hx Renal Disease: No Hx Cancer: No Hx of HIV: No Hx Hepatitis C: No Hx MRSA: No Surgical History: other - Vaccination History Hx Tetanus, Diphtheria Vaccination: Yes - 2016 Hx Influenza Vaccination: No Hx Pneumococcal Vaccination: No - Social History Hx Tobacco Use: Yes Hx Alcohol Use: Yes - occ Hx Substance Use: No Hx Substance Use Treatment: No Hx Depression: No Hx Physical Abuse: No Hx Emotional Abuse: No - Female History Patient is a Female of Child Bearing Age (10 -59 yrs old): Yes Hx Last Menstrual Period: 01/31/19 Patient : Yes Family Medical History - Family History Father Family History: Unknown Living Status: Unknown Hx Family Hypertension: Yes Hx Cardiac Disease: Yes - dad Hx Family Cancer: Yes - breast-grandma Physical Exam - Physical Exam General Appearance: Alert, Comfortable, No apparent distress, Well Groomed, Well Hydrated Eyes, Ears, Nose, Throat Exam: PERRL/EOMI Neck: full range of motion, supple Respiratory: lungs clear, normal breath sounds, no respiratory distress, no accessory muscle use Cardiovascular/Chest: regular rate, rhythm, no edema, no JVD, no murmur Gastrointestinal/Abdominal: normal bowel sounds, non tender, soft Pelvic Exam: other - deferred Back Exam: no CVA tenderness Extremity: normal inspection, no pedal edema Neurologic: no motor/sensory deficits, alert, normal mood/affect, oriented x 3 Skin Exam: normal color, warm/dry, other - no rash Progress - Progress Progress: Presents with possible UTI in early . I will obtain UA, ABO/RH type, and bHcg quantitative to assess validity of US out this time. Dispo will depend on labs, imaging, and pt's overall course in ED; however, discharge home with sort manager f/u, education, and possible prescription is expected. 12:39 Rechecked pt with signficant other at bedside. Discussed HCG levels and results of UA. Discussed risk/benefits/alternatives to US at this time and they do not want US performed today. I have discussed findings of bacteria in urine and possible infection in setting of . I have discussed diagnosis, disposition of discharge home with prescription, and follow up. ED return precautions have been given. Pt and significant other voice understanding, agree with plan, and all questions answered. - Results/Orders Results/Orders: Laboratory Tests 08/30/19 08/30/19 08/30/19 10:50 10:56 10:56 Beta HCG, Quant 2111.0 H Urine Color Yellow Urine Appearance Clear Urine pH 6.0 Ur Specific [place] >= 1.030 Urine Protein Negative Urine Glucose (UA) Negative Urine Ketones Negative Urine Blood Negative Urine Nitrite Negative Urine Bilirubin Small H Urine Urobilinogen 0.2 Ur Leukocyte Esterase Small H Urine RBC 0-1 Urine WBC 3-5 H Ur Epithelial Cells 5-10 Amorphous Sediment 1+ Urine Bacteria 1+ Urine Mucus Large Patient ABO/Rh O POSITIVE Departure - Departure Clinical Impression: First trimester UTI (urinary tract infection) Qualifiers: Urinary tract infection type: site unspecified Hematuria presence: without hematuria Qualified Code(s): N39.0 - Urinary tract infection, site not specified Abdominal pain during Qualifiers: Trimester: first trimester Qualified Code(s): O26.891 - Other specified pregn lien related conditions, first trimester Time of Disposition: 12:40 Disposition: Discharge to Home or Self Care Condition: Fair Departure Forms: ED Discharge - Pt. Copy, Patient Portal Self Enrollment Instructions: DI for Abdominal Pain -- Early , How to Adapt to Physical Changes During , Nutrition Before and During , Stomach Pain in Early Diet: resume usual diet Referrals: Your, Tissue Packer [Other] - 1-2 Weeks (As discussed at bedside, follow up with your Tissue Packer in the next 5-7 days.) Prescriptions: Cephalexin Monohydrate [Keflex] 500 mg PO QID 7 Days #28 cap Vit W/ Ferrous Fumara [ Complete] 1 tab PO DAILY #90 tab Home Medications: Ambulatory Orders Cephalexin Monohydrate [Keflex] 500 mg PO QID 7 Days #28 cap 08/30/19 Vit W/ Ferrous Fumara [ Complete] 1 tab PO DAILY #90 tab 08/30/19 Vit W/ Ferrous Fumara [] 1 tab PO DAILY 08/30/19
[2019-08-30 13:44] VITALS: BP 117/86; O2SAT 99
== END 2019-08-30 13:25 | disposition home or self-care (01) ==
LOC: ER 10:33
DX: O23.41 Unspecified infection of urinary tract in pregnancy, first trimester (principal); O09.291 Supervision of pregnancy with other poor reproductive or obstetric history, first trimester; Z3A.01 Less than 8 weeks gestation of pregnancy; Z87.891 Personal history of nicotine dependence; Z87.440 Personal history of urinary (tract) infections

== ENCOUNTER 2019-09-26 00:13 | Emergency (ER) | payer MEDICAID ==
[2019-09-26 00:29] VITALS: BP 119/86; TEMP 98.5; O2SAT 100
--- NOTE | 2019-09-26 00:29 | ED.PDOC ---
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 Time Seen by Provider: 09/26/19 00:22 Source: patient, RN notes reviewed, Vital Signs reviewed Additional Information: this is a female that present with pelvic pain, paitent stated that she has pelvic pain for the last 3 days she also stated that she have been suffering from a yeast infection lamp menstrual period was July 24, and she is A) patient denies dysuria or bleeding but admits blood when she wipes and pain when she wipes patient is concern about possible miscarriage, and she did mention that she has an appointment with a ob doctor tomorrow - History of Present Illness Timing/Duration: other - since thursday Onset Location: suprapubic Radiation: none Activites at Onset: none Sexual intercourse history: single partner Improving Factors: nothing Worsening Factors: nothing Associated Symptoms: denies symptoms Allergies/Adverse Reactions: Allergies NO KNOWN ALLERGY Allergy (Verified 09/26/19 00:28) Home Medications: Ambulatory Orders Vit W/ Ferrous Fumara [] 1 tab PO DAILY 08/30/19 Cephalexin Monohydrate [Keflex] 500 mg PO BID #14 cap 09/26/19 Review of Systems - Review of Systems Constitutional: States: no symptoms reported. Denies: chills, diaphoresis, fever, malaise EENTM: States: no symptoms reported. Denies: see HPI, eye pain, blurred vision, tearing, double vision, ear pain, ear discharge, nose pain, nose congestion, throat pain, throat swelling, mouth pain, mouth swelling Respiratory: States: no symptoms reported. Denies: cough, orthopnea, short of breath, stridor, wheezing Cardiology: States: no symptoms reported. Denies: chest pain, edema, palpitations, syncope Gastrointestinal/Abdominal: States: abdominal pain. Denies: constipation, diarrhea, nausea, vomiting Genitourinary: Denies: discharge, dysuria, frequency, hematuria, pain Musculoskeletal: Denies: back pain, gout, joint pain, joint swelling, muscle pain, muscle stiffness, neck pain Skin: Denies: change in color, change in hair/nails, dryness, lesions, lumps, rash, other Neurological: Denies: anxiety, depressed, emotional problems, headache, numbness, paresthesia, pre-existing deficit, seizure, tingling, tremors, weakness Endocrine: Denies: excessive sweating, flushing, intolerance to cold, intolerance to heat, increased hunger, increased thirst, increased urine, unexplained weight gain, unexplained weight loss Hematologic/Lymphatic: Denies: anemia, blood clots, easy bleeding, easy bruising, swollen glands Past Medical History (General) - Patient Medical History Hx Seizures: No Hx Stroke: No Hx Dementia: No Hx Asthma: No Hx of COPD: No Hx Cardiac Disorders: No Hx Congestive Heart Failure: No Hx Pacemaker: No Hx Hypertension: No Hx Thyroid Disease: No Hx Diabetes: No Hx Gastroesophageal Reflux: No Hx Renal Disease: No Hx Cancer: No Hx of HIV: No Hx Hepatitis C: No Hx MRSA: No - Vaccination History Hx Tetanus, Diphtheria Vaccination: Yes - 2015 Hx Influenza Vaccination: No Hx Pneumococcal Vaccination: No - Social History Hx Tobacco Use: Yes Hx Alcohol Use: Yes - occ Hx Substance Use: No Hx Substance Use Treatment: No Hx Depression: No Hx Physical Abuse: No Hx Emotional Abuse: No - Female History Hx Last Menstrual Period: 01/31/19 Patient : Yes Family Medical History - Family History Father Family History: Unknown Living Status: Unknown Hx Family Hypertension: Yes Hx Cardiac Disease: Yes - dad Hx Family Cancer: Yes - breast-grandma Physical Exam - Physical Exam General Appearance: Alert, Well Developed, Well Groomed, Well Hydrated Eyes, Ears, Nose, Throat Exam: PERRL/EOMI, normal ENT inspection, TMs normal Neck: non-tender, full range of motion, supple, normal inspection Cardiovascular/Respiratory: regular rate, rhythm, no M/R/G, normal peripheral pulses, no JVD, normal breath sounds, no respiratory distress Gastrointestinal/Abdominal: normal bowel sounds, non tender, soft, no organomegaly, no pulsatile mass Back Exam: normal inspection, no CVA tenderness, no vertebral tenderness Extremity: normal range of motion, non-tender 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, no motor/sensory deficits, alert, normal mood/affect, oriented x 3, abnormal gait Skin Exam: warm/dry Lymphatic: no adenopathy Progress - Progress Progress: 09/26/19 01:00 unofficial ultrasound showed heart tone, and pole, from previous visit patient is O+, pelvic showed some white non foulsmelling discharge no cmt, and took the opportunity to take samples for wet prep and g/c 09/26/19 01:16 urine is positive for UTI which is common with women, im going to give the patient a first dose of keflex in the er 09/26/19 01:44 the treatment of asymptomatic woman is controversial s and since the patient has an appointment with her doctor today im going to leave the treatment for her ob i did not see any bleeding on exam Departure - Departure Clinical Impression: Urinary tract infection affecting Disposition: Discharge to Home or Self Care Departure Forms: ED Discharge - Pt. Copy, Patient Portal Self Enrollment Instructions: DI for Urinary Tract Infection (UTI), Urinary Tract Infection, Adult (DC) Prescriptions: Cephalexin Monohydrate [Keflex] 500 mg PO BID #14 cap Home Medications: Ambulatory Orders Vit W/ Ferrous Fumara [] 1 tab PO DAILY 08/30/19 Cephalexin Monohydrate [Keflex] 500 mg PO BID #14 cap 09/26/19 Additional Instructions: return to the er if bleeding or pain
[2019-09-26] MEDS ORDERED: CEPHALEXIN MONOHYDRATE 500 MG CAP PO ONE (01:18)
== END 2019-09-26 02:00 | disposition home or self-care (01) ==
LOC: ER 00:13
DX: O23.40 Unspecified infection of urinary tract in pregnancy, unspecified trimester (principal); Z87.891 Personal history of nicotine dependence; Z3A.00 Weeks of gestation of pregnancy not specified

== ENCOUNTER → 2019-10-11 | Outpatient (CLI) | payer MEDICAID, OTHER ==
--- NOTE | 2019-10-12 13:11 | US ---
EXAM DESCRIPTION: OB ,Early (0-14wks): Ultrasound. CLINICAL HISTORY: 24 years Female first trimester. Late care. Gestational dating. Obstetrical history unknown. LMP 24 July 2019. EGA 11 weeks and 2 days. JED 29 April 2020. COMPARISON: None. TECHNIQUE: Transpelvic scanning through the urine filled bladder: [place]-scale and Doppler modes. FINDINGS: Uterus: 11.4 x 9.8 x 1.6: 556.5 mL. Anteverted uterus. Gestational sac: Unremarkable size and shape. AFV: Subjectively normal. pole: Mean crown-rump length 4.4 cm. EGA 11 weeks and 1 day. Yolk sac: Not seen. heart tones: 162 bpm. Subchorionic hemorrhage: 3.0 x 2.9 x 1.1 centimeters. Cul-de-sac: No fluid. Comments: EGA corresponds to JED 30 April 2020. Right ovary 3.0 x 2.9 x 1.7 cm. Estimated volume. Normal color Doppler vascularity. No dominant cyst.. No adnexal mass or free fluid. Left ovary not visualized in the left adnexa. No adnexal mass or free fluid. IMPRESSION: 1. Single living intrauterine gestation with normal position of the uterus. [place]-rump length is EGA 11 weeks 1 day with JED 30 April 2020. This is one day younger than EGA by menstrual dates. Placenta not yet seen. 3 cm subchorionic hemorrhage. 2. 3 cm right ovary with normal vascularity. Left ovary not seen. No free fluid or adnexal mass. Electronically signed by: De Ryder MD 10/12/2019 1:09 PM [facility]
== END ==
LOC: YCFC.O 11:31
PROVIDERS: ATTEND Family Medicine
DX: O20.8 Other hemorrhage in early pregnancy (principal); Z3A.11 11 weeks gestation of pregnancy; B37.3 Candidiasis of vulva and vagina

== ENCOUNTER → 2019-12-12 | Outpatient (CLI) | payer OTHER ==
--- NOTE | 2019-12-12 11:27 | US ---
EXAM DESCRIPTION: OB Ultrasound CLINICAL HISTORY: NO MOVEMENT X2 DAYS COMPARISON: 11 October 2019 TECHNIQUE: Transabdominal OB ultrasound FINDINGS: There is a single live intrauterine in breech presentation with estimated gestational age based on today's measurements of 19 weeks 6 days. Estimated date of delivery is 01 May 2020. Placenta is anterior. Cardiac activity is present at a heart rate of 145 beats per min. BPD 4.41 cm consistent with a 19 week 2 day gestation HC 16.97 cm consistent with a 19 week 4 day gestation AC 15.72 cm consistent with a 20 week 6 day gestation FL 3.14 cm consistent with a 19 week 5 day gestation Estimated weight is 341.4 g. 51.2% Amniotic fluid volume is normal . Morphologic assessment shows no abnormal findings. Intracranial structures, four-chamber heart , spine, stomach, three vessel cord and insertion, and facial structures are unremarkable. No adnexal abnormality is demonstrated. IMPRESSION: Single living intrauterine . Appropriate interval growth is observed. Electronically signed by: Troy Zendejas MD 12/12/2019 11:26 AM CDT
== END ==
LOC: US 09:51
PROVIDERS: ATTEND Family Medicine
DX: Z34.02 Encounter for supervision of normal first pregnancy, second trimester (principal); Z3A.19 19 weeks gestation of pregnancy

== ENCOUNTER 2020-01-28 19:47 | Emergency (ER) | payer OTHER ==
[2020-01-28] MEDS ORDERED: SODIUM CHLORIDE 0.9% 1000ML 1,000 ML IVS ONE (20:11)
[2020-01-28] MEDS ORDERED: SUCRALFATE 1 GM/10 ML 1 GM UD PO ONE (20:11)
[2020-01-28] MEDS ORDERED: PROMETHAZINE HCL INJ 25 MG in SODIUM CHLORIDE 0.9% 50ML 50 ML IVPB ONE (20:11)
--- NOTE | 2020-01-28 20:11 | ED.PDOC ---
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 She had been feeling fine immediately prior to that. The patient had not been drinking very much she has been having increased heartburn as well recently. She does have a history of some questionable biliary colic in the past. She is not having any fevers. She has not thrown up any bilious material. No evidence of any jaundice. She does have some mild discomfort to the right upper quadrant. No rebound or peritoneal signs. The patient has not thrown up since her arrival here and vital signs have been stable since her arrival here. Timing/Duration: 1/2 hour Severity: moderate Improving Factors: nothing Worsening Factors: nothing Associated Symptoms: loss of appetite, malaise, nausea/vomiting, weakness Allergies/Adverse Reactions: Allergies NO KNOWN ALLERGY Allergy (Verified 09/26/19 00:28) Home Medications: Ambulatory Orders Vit W/ Ferrous Fumara [] 1 tab PO DAILY 08/30/19 Cephalexin Monohydrate [Keflex] 500 mg PO BID #14 cap 09/26/19 Famotidine 20 mg PO BID #30 tab 01/28/20 Ondansetron Odt [Zofran ODT] 4 mg PO Q8HR PRN #5 tab 01/28/20 Review of Systems - Review of Systems Constitutional: States: malaise, weakness - Generalized EENTM: States: no symptoms reported Respiratory: States: no symptoms reported Cardiology: States: other - Near syncope Gastrointestinal/Abdominal: States: nausea, vomiting Genitourinary: States: no symptoms reported Musculoskeletal: States: no symptoms reported Skin: States: no symptoms reported Neurological: States: see HPI Endocrine: States: no symptoms reported All other Systems: No Change from Baseline Past Medical History (General) - Patient Medical History Hx Seizures: No Hx Stroke: No Hx Dementia: No Hx Asthma: No Hx of COPD: No Hx Cardiac Disorders: No Hx Congestive Heart Failure: No Hx Pacemaker: No Hx Hypertension: No Hx Thyroid Disease: No Hx Diabetes: No Hx Gastroesophageal Reflux: No Hx Renal Disease: No Hx Cancer: No Hx of HIV: No Hx Hepatitis C: No Hx MRSA: No - Vaccination History Hx Tetanus, Diphtheria Vaccination: Yes - 2016 Hx Influenza Vaccination: No Hx Pneumococcal Vaccination: No - Social History Hx Tobacco Use: Yes Hx Alcohol Use: Yes - occ Hx Substance Use: No Hx Substance Use Treatment: No Hx Depression: No Hx Physical Abuse: No Hx Emotional Abuse: No - Female History Hx Last Menstrual Period: 01/31/19 Patient : Yes Family Medical History - Family History Father Family History: Unknown Living Status: Unknown Hx Family Hypertension: Yes Hx Cardiac Disease: Yes - dad Hx Family Cancer: Yes - breast-grandma Physical Exam - Physical Exam General Appearance: Alert, No apparent distress Eye Exam: bilateral normal Ears, Nose, Throat: hearing grossly normal, normal pharynx Neck: full range of motion, supple Respiratory: lungs clear, normal breath sounds, no respiratory distress, no accessory muscle use Cardiovascular/Chest: normal peripheral pulses, regular rate, rhythm, no edema Peripheral Pulses: radial,right: 2+, radial,left: 2+ Gastrointestinal/Abdominal: soft, other - Mild discomfort to the right upper quadrant. Abdomen is gravid. No tenderness over the fundus. heart tones are in the 150s. Rectal Exam: deferred Back Exam: no CVA tenderness, no vertebral tenderness Extremity: normal range of motion, non-tender, normal inspection, no pedal edema, normal capillary refill Neurologic: bat carrier II-XII nml as tested, alert, normal mood/affect, oriented x 3 Skin Exam: normal color Comments: Vital Signs - 24 hr 01/28/20 01/28/20 01/28/20 19:53 20:48 21:48 Temperature 97.6 F Pulse Rate [ 96 H 88 78 monitor] Respiratory 18 18 18 Rate Blood Pressure 127/89 110/71 114/75 [Right Arm] O2 Sat by Pulse 100 96 96 Oximetry 01/28/20 22:00 Temperature 97.9 F Pulse Rate [ 76 monitor] Respiratory 18 Rate Blood Pressure 114/75 [Right Arm] O2 Sat by Pulse 99 Oximetry Laboratory Results - last 24 hr 01/28/20 01/28/20 01/28/20 19:59 20:00 20:05 WBC RBC Hgb Hct MCV MCH MCHC RDW Plt Count MPV Absolute Neuts (auto) Absolute Lymphs (auto) Absolute Monos (auto) Absolute Eos (auto) Absolute Basos (auto) Neutrophils % Lymphocytes % Monocytes % Eosinophils % Basophils % Sodium 135 Potassium 3.4 L Chloride 105 Carbon Dioxide 22 Anion Gap 11.4 L BUN 6 L Creatinine 0.53 L BUN/Creatinine Ratio 11.3 POC Glucose 94 Random Glucose 107 H Serum Osmolality 268.2 L Calcium 9.0 Magnesium Total Bilirubin 0.5 AST 18 ALT 13 Alkaline Phosphatase 53 Serum Total Protein 7.0 Albumin 3.5 Globulin 3.5 Albumin/Globulin Ratio 1.0 L Amylase 67 Lipase TSH Urine Color Yellow Urine Appearance Clear Urine pH 6.0 Ur Specific [place] >= 1.030 Urine Protein 100 H Urine Glucose (UA) Negative Urine Ketones Negative Urine Blood Trace-intact H Urine Nitrite Negative Urine Bilirubin Small H Urine Urobilinogen 0.2 Ur Leukocyte Esterase Negative Urine RBC 1-3 Urine WBC 1-3 Ur Epithelial Cells 5-10 Amorphous Sediment Trace Urine Bacteria 1+ Urine Mucus Moderate 01/28/20 01/28/20 20:05 20:05 WBC 10.6 RBC 4.12 L Hgb 13.7 Hct 40.1 MCV 97.4 MCH 33.3 H MCHC 34.2 RDW 13.4 Plt Count 179 MPV 10.1 Absolute Neuts (auto) 7.80 H Absolute Lymphs (auto) 1.80 Absolute Monos (auto) 0.80 Absolute Eos (auto) 0.20 Absolute Basos (auto) 0.00 Neutrophils % 73.8 Lymphocytes % 16.6 L Monocytes % 7.7 Eosinophils % 1.6 Basophils % 0.3 Sodium Potassium Chloride Carbon Dioxide Anion Gap BUN Creatinine BUN/Creatinine Ratio POC Glucose Random Glucose Serum Osmolality Calcium Magnesium 1.7 L Total Bilirubin AST ALT Alkaline Phosphatase Serum Total Protein Albumin Globulin Albumin/Globulin Ratio Amylase Lipase 30 TSH 1.88 Urine Color Urine Appearance Urine pH Ur Specific Walton Urine Protein Urine Glucose (UA) Urine Ketones Urine Blood Urine Nitrite Urine Bilirubin Urine Urobilinogen Ur Leukocyte Esterase Urine RBC Urine WBC Ur Epithelial Cells Amorphous Sediment Urine Bacteria Urine Mucus Progress - Progress Progress: 01/28/20 22:49 The patient is a 24-year-old female at approximately 27 weeks estimated gestational age presenting after an episode of near syncope with associated nausea and vomiting. Patient does have some mild dehydration and did receive a liter of IV fluids. She also received some nausea medications which did help symptoms. The patient does appear to have significant gastritis and reflux issues. She does need to increase her fluid intake. The patient will be written for Zofran for as needed use to control any nausea or vomiting. Additionally she will be written for 2 weeks of oral Pepcid to help reduce any gastritis issues and reflux issues. 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 The patient does need to hold onto something after she stands up quickly as orthostatic issues can be more problematic during . I do want her to follow-up with Dr. Phan early this coming week to get set up with a right upper quadrant ultrasound. While there is no elevation in white blood cell count or liver function test here today, she apparently does have a history of some mild biliary colic and a repeat evaluation with ultrasound during would be warranted. Obvious ly if the patient's symptoms started getting worse rather than continuing to improve or she starts to develop a fever, then additional work-up would be warranted on a more emergent basis. Patient does understand the plan of care and has agreed to it. ER warnings are given. [email or web address] Departure - Departure Clinical Impression: Vasovagal near syncope, Dehydration, mild, GERD with esophagitis Disposition: Discharge to Home or Self Care Condition: Fair Departure Forms: ED Discharge - Pt. Copy, Patient Portal Self Enrollment Instructions: Acid Reflux and GERD in Adults (DC) Diet: bland diet Activity: increase activity as tolerated Referrals: Milena Phan MD [Primary Care Provider] - 1-2 Weeks Prescriptions: Ondansetron Odt [Zofran ODT] 4 mg PO Q8HR PRN #5 tab PRN Reason: Nausea--Moderate Famotidine 20 mg PO BID #30 tab Home Medications: Ambulatory Orders Vit W/ Ferrous Fumara [] 1 tab PO DAILY 08/30/19 Cephalexin Monohydrate [Keflex] 500 mg PO BID #14 cap 09/26/19 Famotidine 20 mg PO BID #30 tab 01/28/20 Ondansetron Odt [Zofran ODT] 4 mg PO Q8HR PRN #5 tab 01/28/20 Additional Instructions: The patient is a 24-year-old female at approximately 27 weeks estimated gestational age presenting after an episode of near syncope with associated nausea and vomiting. Patient does have some mild dehydration and did receive a liter of IV fluids. She also received some nausea medications which did help symptoms. The patient does appear to have significant gastritis and reflux issues. She does need to increase her fluid intake. The patient will be written for Zofran for as needed use to control any nausea or vomiting. Additionally she will be written for 2 weeks of oral Pepcid to help reduce any gastritis issues and reflux issues. 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 The patient does need to hold onto something after she stands up quickly as orthostatic issues can be more problematic during . I do want her to follow-up with Dr. Phan early this coming week to get set up with a right upper quadrant ultrasound. While there is no elevation in white blood cell count or liver function test here today, she apparently does have a history of some mild biliary colic and a repeat evaluation with ultrasound during would be warranted. Obviously if the patient's symptoms started getting worse rather than continuing to improve or she starts to develop a fever, then additional work-up would be warranted on a more emergent basis. Patient does understand the plan of care and has agreed to it. ER warnings are given.
[2020-01-28] MEDS ORDERED: FAMOTIDINE 20 MG TAB PO ONE (20:12)
[2020-01-28 22:28] VITALS: O2SAT 99
[2020-01-28 23:15] VITALS: BP 116/70; TEMP 98
== END 2020-01-28 23:15 | disposition home or self-care (01) ==
LOC: ER 19:47
DX: O99.613 Diseases of the digestive system complicating pregnancy, third trimester (principal); R55 Syncope and collapse; E86.0 Dehydration; K21.0 Gastro-esophageal reflux disease with esophagitis; Z3A.27 27 weeks gestation of pregnancy; Z87.891 Personal history of nicotine dependence
CPT/HCPCS: 80053; 81001; 82150; 82948; 83690; 83735; 84443; 85025; A4216; J2550; J7030

== ENCOUNTER → 2020-01-30 | Outpatient (CLI) | payer OTHER | LOC: YCFC.O 08:17 | PROVIDERS: ATTEND Family Medicine | DX: Z13.1 Encounter for screening for diabetes mellitus (principal) ==

== ENCOUNTER → 2020-01-31 | Outpatient (CLI) | payer OTHER ==
--- NOTE | 2020-01-31 13:26 | US ---
EXAM DESCRIPTION: Gall Bladder: ULTRASOUND. CLINICAL HISTORY: RIGHT UPPER QUADRANT PAIN intrauterine gestation. EGA 7 months. COMPARISON: Abdomen CT scan October 2018 TECHNIQUE: Transabdominal scanning: De La Vega-scale and Doppler modes. FINDINGS: Gallbladder: normal size, shape, echogenicity; no intraluminal stones or sludge. No fluid around the gallbladder. No wall thickening. 2.6 mm. Non-tender with transducer pressure. Common bile duct: caliber 6 mm upper normal limits. Liver: normal echogenicity; contour liver capsule smooth where seen. No fluid around the liver. Intrahepatic biliary ducts normal caliber. Doppler hepatopedal flow portal vein.. 11 mm caliber. Long axis right lobe cm Pancreas: normal size Normal echogenicity. Duct not seen. Aorta: 2.1 cm caliber normal. Right kidney: long axis is long axis XII.1 cm. Normal cortical thickness and echogenicity. No echogenic stones or hydronephrosis.. IMPRESSION: Common bile duct borderline enlarged. Normal gallbladder with no tenderness. Liver, pancreas, and right kidney are unremarkable. Normal caliber of the proximal abdominal aorta. Electronically signed by: De Ryder MD 01/31/2020 1:24 PM CDT
== END ==
LOC: US 08:21
PROVIDERS: ATTEND Family Medicine
DX: K83.8 Other specified diseases of biliary tract (principal)

== ENCOUNTER → 2020-02-23 | Outpatient (CLI) | payer OTHER | LOC: YCFC.O 02-17 13:31 | PROVIDERS: ATTEND Family Medicine | DX: R73.9 Hyperglycemia, unspecified (principal) ==

== ENCOUNTER 2020-03-25 00:55 | Emergency (ER) | payer OTHER ==
--- NOTE | 2020-03-25 01:38 | ED.PDOC ---
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 Patient denies experiencing rupture of membranes. Patient is a G3, P1. She indicates that she is approximately 35 weeks EGA and that her OB doctor is Dr. Phan. Patient indicates her has been uneventful but she does have gestational diabetes. Patient is otherwise asymptomatic. - History of Present Illness Allergies/Adverse Reactions: Allergies NO KNOWN ALLERGY Allergy (Verified 03/25/20 01:35) Home Medications: Ambulatory Orders Vit W/ Ferrous Fumara [] 1 tab PO DAILY 08/30/19 Cephalexin Monohydrate [Keflex] 500 mg PO BID #14 cap 09/26/19 Famotidine 20 mg PO BID #30 tab 01/28/20 Ondansetron Odt [Zofran ODT] 4 mg PO Q8HR PRN #5 tab 01/28/20 Review of Systems - Review of Systems Constitutional: States: no symptoms reported. Denies: chills, fever EENTM: States: no symptoms reported Respiratory: States: no symptoms reported. Denies: cough, short of breath Cardiology: States: no symptoms reported. Denies: chest pain, palpitations Gastrointestinal/Abdominal: States: see HPI. Denies: nausea, vomiting Genitourinary: States: see HPI Musculoskeletal: States: no symptoms reported. Denies: muscle pain Skin: States: no symptoms reported. Denies: rash All other Systems: Reviewed and Negative Past Medical History (General) - Patient Medical History Hx Seizures: No Hx Stroke: No Hx Dementia: No Hx Asthma: No Hx of COPD: No Hx Cardiac Disorders: No Hx Congestive Heart Failure: No Hx Pacemaker: No Hx Hypertension: No Hx Thyroid Disease: No Hx Diabetes: No Hx Gastroesophageal Reflux: No Hx Renal Disease: No Hx Cancer: No Hx of HIV: No Hx Hepatitis C: No Hx MRSA: No - Vaccination History Hx Tetanus, Diphtheria Vaccination: Yes - 2016 Hx Influenza Vaccination: No Hx Pneumococcal Vaccination: No - Social History Hx Tobacco Use: Yes Hx Alcohol Use: Yes - occ Hx Substance Use: No Hx Substance Use Treatment: No Hx Depression: No Hx Physical Abuse: No Hx Emotional Abuse: No Hx Suspected Abuse: No - Female History Hx Last Menstrual Period: 01/31/19 Patient : Yes Expected Date of Delivery:: 04/29/20 Family Medical History - Family History Father Family History: Unknown Living Status: Unknown Hx Family Hypertension: Yes Hx Cardiac Disease: Yes - dad Hx Family Cancer: Yes - breast-grandma Physical Exam - Physical Exam General Appearance: Alert, Anxious, No apparent distress, Well Developed, Well Nourished Neck: supple, normal inspection Cardiovascular/Respiratory: no M/R/G, normal peripheral pulses, no JVD, normal breath sounds, no respiratory distress, tachycardia Gastrointestinal/Abdominal: normal bowel sounds, non tender, soft, other - Gravid uterus Pelvic Exam: external exam normal, other - Membranes are intact. Outer os is 4 cm, inner os is 2 cm, patient is approximately 30% effaced. Back Exam: normal inspection Extremity: normal inspection Neurologic: no motor/sensory deficits, alert, normal mood/affect Skin Exam: normal color, warm/dry Progress - Progress Progress: 03/25/20 01:43 Upon arrival patient placed on toco monitoring. Patient with moderate variability with positive accelerations to the 160s but no decelerations. FHT are 125-135. Contractions upon arrival were approximately every 10 minutes but now they are approximately every 2 minutes. We have spoke with Dr. Phan, patient's OB and she is out of town and unable to assist. After discussion with Dr Phan, patient would be best suited by being transferred to a facility that can manage her labor and we have discussed this with patient and she accepts transfer to [facility]. I have spoken via the transfer line with OB at [facility] [place], Dr. Christie, who accepts patient in transfer. Pt given terbutaline in the ED as a tocolytic. 03/25/20 02:06 Patient reassessed and her contractions have resolved following terbutaline. Her toco monitoring is reassuring. Patient is comfortable and stable at this time. 03/25/20 03:52 Pt remains contraction-free. She is medically clear for transfer to [facility]. Departure - Departure Clinical Impression: labor in third trimester Qualifiers: labor delivery status: without delivery Qualified Code(s): O60.03 - labor without delivery, third trimester Time of Disposition: 03:00 Disposition: Transfer to Hospital Condition: Good Home Medications: Ambulatory Orders Vit W/ Ferrous Fumara [] 1 tab PO DAILY 08/30/19 Cephalexin Monohydrate [Keflex] 500 mg PO BID #14 cap 09/26/19 Famotidine 20 mg PO BID #30 tab 01/28/20 Ondansetron Odt [Zofran ODT] 4 mg PO Q8HR PRN #5 tab 01/28/20 Transfer to Outside Facility - Transfer Information Decision to Transfer Date: 03/25/20 Decision to Transfer Time: 02:30 Reason for Transfer: specialized care not available Accepting Facility: [facility]
[2020-03-25] MEDS ORDERED: TERBUTALINE SULFATE SUBCU ONE (01:39)
[2020-03-25] MEDS ORDERED: SODIUM CHLORIDE 0.9% 1000ML 1,000 ML IVS ONE (01:39)
[2020-03-25 02:13] VITALS: O2SAT 100
[2020-03-25 03:15] VITALS: TEMP 97.8
[2020-03-25 03:31] VITALS: BP 115/73
[2020-03-25] MEDS ORDERED: LACTATED RINGERS 1,000 ML ONE (03:48)
== END 2020-03-25 03:57 | disposition short-term general hospital (02) ==
LOC: ER 00:55
DX: O60.03 Preterm labor without delivery, third trimester (principal); O24.419 Gestational diabetes mellitus in pregnancy, unspecified control; Z3A.35 35 weeks gestation of pregnancy; Z87.891 Personal history of nicotine dependence
CPT/HCPCS: 80053; 81001; 85025; 86900; 86901; J3105; J7030; J7120

== ENCOUNTER → 2020-04-05 | Outpatient (CLI) | payer OTHER | LOC: YCFC.O 10:04 | PROVIDERS: ATTEND Nurse Practitioner | DX: Z33.1 Pregnant state, incidental (principal) ==

== ENCOUNTER → 2020-05-08 | Outpatient (CLI) | payer OTHER | LOC: YCFC.O 11:18 | PROVIDERS: ATTEND Family Medicine | DX: R82.79 Other abnormal findings on microbiological examination of urine (principal) ==

== ENCOUNTER → 2020-07-02 | Outpatient (CLI) | payer OTHER | LOC: YCFC.O 10:08 | PROVIDERS: ATTEND Family Medicine | DX: R82.79 Other abnormal findings on microbiological examination of urine (principal) ==

== ENCOUNTER → 2020-09-07 | Outpatient (CLI) | payer OTHER | LOC: YCFC.O 10:04 | PROVIDERS: ATTEND Family Medicine | DX: Z00.00 Encounter for general adult medical examination without abnormal findings (principal); Z13.0 Encounter for screening for diseases of the blood and blood-forming organs and certain disorders involving the immune mechanism; Z13.220 Encounter for screening for lipoid disorders; Z13.29 Encounter for screening for other suspected endocrine disorder ==